=== PATIENT | female | born 1935 | race Caucasian/White ===

== ENCOUNTER 2016-08-08 11:30 | Inpatient (IN) | payer MEDICAID ==
[~2016-08-08] VITALS: Ht 147.3 cm; Wt 64.0 kg
[2016-08-08] MEDS ORDERED: SODIUM CHLORIDE 0.9% 1,000 ML IV ONE (11:50)
[2016-08-08] MEDS ORDERED: ACETAMINOPHEN 500 MG TABLET PO ONE (12:00)
[2016-08-08] MEDS ORDERED: ACETAMINOPHEN 325 MG TABLET PO ONE (12:00)
[2016-08-08] MEDS ORDERED: SODIUM CHLORIDE 0.9% 1,000ML IVBOLUS ONE ×4 (12:00→21:30)
[2016-08-08] MEDS ORDERED: ACETAMINOPHEN 500 MG TABLET ONE (12:05)
[2016-08-08 12:35] LABS: DIFF TOTAL CELLS COUNTED 100 CELL DIFF
[2016-08-08 12:39] LABS: ASPARTATE AMINO TRANSFERASE 382 U/L (15-37); BLOOD UREA NITROGEN 33 mg/dL (7-18)
[2016-08-08 12:39] LABS: VERIFY COUNTS? YES
[2016-08-08] MEDS ORDERED: CEFTRIAXONE PMX 1GM/50ML 50 ML ONE (12:59)
[2016-08-08] MEDS ORDERED: CEFTRIAXONE PMX 1GM/50ML 50 ML IV ONE (13:00)
[2016-08-08] MEDS ORDERED: NOREPINEPHRINE 4 MG in SODIUM CHLORIDE 0.9% 246 ML IV PRN ×2 (14:30→21:30)
[2016-08-08 14:59] LABS: IS PT STATUS REG ER OR PRE ER? YES
[2016-08-08] MEDS ORDERED: DEXTROSE 4 GM TAB.CHEW PO PRN (16:00)
[2016-08-08] MEDS ORDERED: GLUCAGON 1 MG IM PRN (16:00)
[2016-08-08] MEDS ORDERED: POLYETHYLENE GLYCOL 17 GM PACKET PO PRN (16:00)
[2016-08-08] MEDS ORDERED: BISACODYL 10 MG SUPP PR PRN (16:00)
[2016-08-08] MEDS ORDERED: DEXTROSE 50%, 50ML SYRINGE IVPush PRN (16:00)
[2016-08-08] MEDS ORDERED: DOCUSATE 100 MG CAPSULE PO PRN (16:00)
[2016-08-08] MEDS ORDERED: POTASSIUM CHLORIDE 10 MEQ in SODIUM CHLORIDE 0.9% 1,000 ML IV SCH (16:00)
[2016-08-08] MEDS: INSULIN ASPART 100 UNITS/ML, PEN SQ-INSULIN SCH ×2 (16:00→22:18)
[2016-08-08] MEDS ORDERED: ONDANSETRON 2MG/ML, 2ML IVPush PRN (16:00)
[2016-08-08] MEDS: METRONIDAZOLE PMX 500MG/100ML 100 ML IV SCH ×2 (16:47→23:34)
[2016-08-08] MEDS: HEPARIN 5,000 UNITS/ML, 1ML SQ SCH (16:48)
[2016-08-08 18:34] LABS: ABG COLLECTION SITE RIGHT BRACHIAL; COLLATERAL CIRCULATION TESTING NORMAL
[2016-08-08] MEDS: SODIUM CHLORIDE FLUSH 10ML SYR IVF SCH (22:04)
[2016-08-08] MEDS: POTASSIUM CHLORIDE 10 MEQ in SODIUM CHLORIDE 0.9% 1,000 ML IV SCH (22:04)
[2016-08-09] MEDS: HEPARIN 5,000 UNITS/ML, 1ML SQ SCH ×3 (02:17→17:32)
[2016-08-09] MEDS: POTASSIUM CHLORIDE 10 MEQ in SODIUM CHLORIDE 0.9% 1,000 ML IV SCH ×4 (04:32→23:47)
[2016-08-09 05:24] LABS: ASPARTATE AMINO TRANSFERASE 209 U/L (15-37); BLOOD UREA NITROGEN 21 mg/dL (7-18)
[2016-08-09 05:26] LABS: DIFF TOTAL CELLS COUNTED 100 CELL DIFF
[2016-08-09 05:27] LABS: VERIFY COUNTS? YES
[2016-08-09] MEDS: METRONIDAZOLE PMX 500MG/100ML 100 ML IV SCH ×4 (05:29→23:47)
[2016-08-09] MEDS: INSULIN ASPART 100 UNITS/ML, PEN SQ-INSULIN SCH ×4 (08:05→21:00)
[2016-08-09 09:42] LABS: HEPATITIS C VIRUS ANTIBODY Nonreactive (Nonreactive)
[2016-08-09] MEDS: SODIUM CHLORIDE FLUSH 10ML SYR IVF SCH ×2 (10:13→21:27)
[2016-08-09] MEDS ORDERED: MORPHINE SULFATE 4 MG/ML, 1ML ONE (12:49)
[2016-08-09] MEDS: morphine SULFATE 10 MG/ML, 1ML IVPush PRN ×4 (12:58→23:47)
[2016-08-09] MEDS ORDERED: CEFTRIAXONE 1,000 MG in SODIUM CHLORIDE 0.9% 50 ML IV SCH (13:00)
[2016-08-09] MEDS ORDERED: VANCOMYCIN PER PHARMACY MC PRN (18:00)
[2016-08-09] MEDS ORDERED: PHARMACOKINETIC MONITORING MC PRN (18:30)
[2016-08-09] MEDS ORDERED: PHARMACOKINETIC CONSULTATION MC ONE (18:30)
[2016-08-09] MEDS: NYSTATIN 500,000 UNITS/5 ML UDC PO SCH ×2 (18:39→21:27)
[2016-08-09] MEDS: VANCOMYCIN PMX 1GM/200ML 200 ML IV SCH (18:39)
[2016-08-09] MEDS: MEROPENEM 1 GM in SODIUM CHLORIDE 0.9% 100 ML IV SCH (21:26)
[2016-08-10] MEDS: HEPARIN 5,000 UNITS/ML, 1ML SQ SCH ×3 (02:21→17:27)
[2016-08-10] MEDS: morphine SULFATE 10 MG/ML, 1ML IVPush PRN (04:00)
[2016-08-10] MEDS: MEROPENEM 1 GM in SODIUM CHLORIDE 0.9% 100 ML IV SCH ×3 (04:00→21:24)
[2016-08-10 05:03] LABS: ASPARTATE AMINO TRANSFERASE 74 U/L (15-37); BLOOD UREA NITROGEN 12 mg/dL (7-18)
[2016-08-10] MEDS: METRONIDAZOLE PMX 500MG/100ML 100 ML IV SCH ×4 (05:47→23:38)
[2016-08-10] MEDS: NYSTATIN 500,000 UNITS/5 ML UDC PO SCH ×4 (05:47→21:24)
[2016-08-10 06:01] LABS: DIFF TOTAL CELLS COUNTED 100 CELL DIFF
[2016-08-10 06:03] LABS: VERIFY COUNTS? YES
[2016-08-10] MEDS: INSULIN ASPART 100 UNITS/ML, PEN SQ-INSULIN SCH ×4 (08:20→21:00)
[2016-08-10] MEDS: POTASSIUM CHLORIDE 10 MEQ in SODIUM CHLORIDE 0.9% 1,000 ML IV SCH ×3 (08:37→21:26)
[2016-08-10] MEDS: SODIUM CHLORIDE FLUSH 10ML SYR IVF SCH ×2 (08:38→21:24)
[2016-08-10] MEDS ORDERED: POTASSIUM CHLORIDE 10 MEQ in SODIUM CHLORIDE 0.9% 1,000 ML IV SCH (09:14)
[2016-08-10] MEDS ORDERED: POTASSIUM CHLORIDE 20 MEQ PACKET PO ONE (09:30)
[2016-08-10] MEDS ORDERED: MAGNESIUM SULFATE PMX 4GM/100M 100 ML IVPB ONE (09:30)
[2016-08-10] MEDS: VANCOMYCIN PMX 1GM/200ML 200 ML IV SCH (21:24)
[2016-08-11] MEDS: HEPARIN 5,000 UNITS/ML, 1ML SQ SCH ×3 (01:30→22:33)
[2016-08-11] MEDS: MEROPENEM 1 GM in SODIUM CHLORIDE 0.9% 100 ML IV SCH ×3 (03:53→22:33)
[2016-08-11 04:10] VITALS: BP 130/44
[2016-08-11 05:07] LABS: ASPARTATE AMINO TRANSFERASE 38 U/L (15-37); BLOOD UREA NITROGEN 6 mg/dL (7-18)
[2016-08-11] MEDS: METRONIDAZOLE PMX 500MG/100ML 100 ML IV SCH ×3 (05:19→23:17)
[2016-08-11] MEDS: INSULIN ASPART 100 UNITS/ML, PEN SQ-INSULIN SCH ×4 (05:23→21:00)
[2016-08-11] MEDS: NYSTATIN 500,000 UNITS/5 ML UDC PO SCH ×4 (05:23→22:33)
[2016-08-11 05:38] LABS: DIFF TOTAL CELLS COUNTED 100 CELL DIFF
[2016-08-11 05:40] LABS: VERIFY COUNTS? YES
[2016-08-11] MEDS: SODIUM CHLORIDE FLUSH 10ML SYR IVF SCH ×2 (08:43→22:34)
[2016-08-11] MEDS ORDERED: FENTANYL PF 250 MCG/5ML ONE (14:43)
[2016-08-11] MEDS ORDERED: BUPIVACAINE/PF 0.5% ONE (14:45)
[2016-08-11] MEDS ORDERED: SUCCINYLCHOLINE 20 MG/ML, 10ML ONE (15:21)
[2016-08-11] MEDS ORDERED: PROPOFOL 10 MG/ML, 20ML ONE (15:21)
[2016-08-11] MEDS ORDERED: ROCURONIUM 10 MG/ML ONE (15:21)
[2016-08-11] MEDS ORDERED: GLYCOPYRROLATE 0.2MG/1ML ONE (15:21)
[2016-08-11] MEDS ORDERED: ONDANSETRON 2MG/ML, 2ML ONE (15:21)
[2016-08-11] MEDS ORDERED: EPHEDRINE 50 MG/ML, 1ML ONE (15:21)
[2016-08-11] MEDS ORDERED: NEOSTIGMINE 1 MG/ML, 10ML ONE (15:21)
[2016-08-11] MEDS ORDERED: BUPIVACAINE/PF 0.5% INFIL ONE (15:45)
[2016-08-11] MEDS ORDERED: FENTANYL PF 100 MCG/2ML ONE (16:28)
[2016-08-11] MEDS ORDERED: OXYcodone 5 MG/5 ML ORAL.SOL UDC ONE (16:28)
[2016-08-11] MEDS ORDERED: OXYcodone 5 MG/5 ML ORAL.SOL UDC PO PRN (17:00)
[2016-08-11] MEDS ORDERED: PROMETHAZINE 25 MG/ML, 1ML IV PRN (17:00)
[2016-08-11] MEDS ORDERED: FENTANYL PF 100 MCG/2ML IV PRN (17:00)
[2016-08-11] MEDS ORDERED: ONDANSETRON 2MG/ML, 2ML IVPush PRN (17:00)
[2016-08-11] MEDS: POTASSIUM CHLORIDE 10 MEQ in SODIUM CHLORIDE 0.9% 1,000 ML IV SCH (17:43)
[2016-08-12] MEDS: VANCOMYCIN PMX 1GM/200ML 200 ML IV SCH (00:16)
[2016-08-12 00:42] VITALS: BP 100/50
[2016-08-12] MEDS: NYSTATIN 500,000 UNITS/5 ML UDC PO SCH ×4 (05:13→19:55)
[2016-08-12] MEDS: morphine SULFATE 10 MG/ML, 1ML IVPush PRN (05:13)
[2016-08-12] MEDS: POTASSIUM CHLORIDE 10 MEQ in SODIUM CHLORIDE 0.9% 1,000 ML IV SCH ×3 (05:13→17:15)
[2016-08-12] MEDS: METRONIDAZOLE PMX 500MG/100ML 100 ML IV SCH ×4 (05:13→23:29)
[2016-08-12 05:50] LABS: ASPARTATE AMINO TRANSFERASE 48 U/L (15-37); BLOOD UREA NITROGEN 5 mg/dL (7-18)
[2016-08-12] MEDS: MEROPENEM 1 GM in SODIUM CHLORIDE 0.9% 100 ML IV SCH ×3 (06:36→22:28)
[2016-08-12] MEDS: HEPARIN 5,000 UNITS/ML, 1ML SQ SCH ×3 (06:36→22:29)
[2016-08-12 06:44] VITALS: BP 116/55
[2016-08-12] MEDS: INSULIN ASPART 100 UNITS/ML, PEN SQ-INSULIN SCH ×4 (07:00→19:55)
[2016-08-12] MEDS: SODIUM CHLORIDE FLUSH 10ML SYR IVF SCH ×2 (07:45→19:55)
[2016-08-12] MEDS ORDERED: [UNRECOGNIZED DRUG - REMARK] XX PRN (10:00)
[2016-08-12 12:53] VITALS: BP 98/63
[2016-08-12] MEDS ORDERED: FUROSEMIDE 40 MG/4 ML IV ONE ×2 (17:00→17:30)
[2016-08-12] MEDS ORDERED: FUROSEMIDE 20 MG/2 ML ONE (17:07)
[2016-08-12 17:19] VITALS: BP 117/47
[2016-08-12] MEDS: ACETAMINOPHEN 325 MG TABLET PO PRN (17:32)
[2016-08-12] MEDS: POTASSIUM CHLORIDE 20 MEQ TAB.ER.PRT PO SCH ×4 (17:32→23:46)
[2016-08-12] MEDS ORDERED: FUROSEMIDE 20 MG/2 ML IV ONE (18:00)
[2016-08-12 21:03] VITALS: BP 102/66
[2016-08-13 01:04] VITALS: BP 104/71
[2016-08-13] MEDS: POTASSIUM CHLORIDE 10 MEQ in SODIUM CHLORIDE 0.9% 1,000 ML IV SCH ×2 (04:33→16:00)
[2016-08-13] MEDS: METRONIDAZOLE PMX 500MG/100ML 100 ML IV SCH ×3 (04:33→18:21)
[2016-08-13 05:20] LABS: BLOOD UREA NITROGEN 4 mg/dL (7-18)
[2016-08-13 05:29] LABS: ASPARTATE AMINO TRANSFERASE 111 U/L (15-37)
[2016-08-13] MEDS: HEPARIN 5,000 UNITS/ML, 1ML SQ SCH ×3 (06:00→21:42)
[2016-08-13] MEDS: MEROPENEM 1 GM in SODIUM CHLORIDE 0.9% 100 ML IV SCH ×3 (06:00→21:42)
[2016-08-13] MEDS: NYSTATIN 500,000 UNITS/5 ML UDC PO SCH ×4 (06:00→20:08)
[2016-08-13] MEDS ORDERED: POTASSIUM PHOSPHATE 44 MEQ in SODIUM CHLORIDE 0.9% 500 ML IV ONE (06:00)
[2016-08-13 08:30] VITALS: BP 101/56
[2016-08-13] MEDS: ACETAMINOPHEN 325 MG TABLET PO PRN (08:46)
[2016-08-13] MEDS: INSULIN ASPART 100 UNITS/ML, PEN SQ-INSULIN SCH ×4 (08:47→20:08)
[2016-08-13] MEDS: SODIUM CHLORIDE FLUSH 10ML SYR IVF SCH ×2 (08:47→21:43)
[2016-08-13] MEDS ORDERED: VANCOMYCIN PMX 1GM/200ML 200 ML IV SCH (11:00)
[2016-08-13 14:30] VITALS: BP 102/59
[2016-08-13] MEDS ORDERED: POTASSIUM CHLORIDE 10 MEQ TABLET.ER PO SCH (18:00)
[2016-08-13] MEDS ORDERED: MAGNESIUM SULFATE PMX 4GM/100M 100 ML IV ONE (18:00)
[2016-08-13] MEDS ORDERED: FUROSEMIDE 40 MG/4 ML IV ONE ×2 (18:00)
[2016-08-13] MEDS ORDERED: POTASSIUM CHLORIDE 20 MEQ TAB.ER.PRT PO ONE (18:00)
[2016-08-13 18:52] VITALS: BP 112/70
[2016-08-14] MEDS: METRONIDAZOLE PMX 500MG/100ML 100 ML IV SCH ×4 (00:35→18:22)
[2016-08-14 01:00] VITALS: BP 125/69
[2016-08-14 05:09] LABS: ASPARTATE AMINO TRANSFERASE 53 U/L (15-37); BLOOD UREA NITROGEN 2 mg/dL (7-18)
[2016-08-14] MEDS: HEPARIN 5,000 UNITS/ML, 1ML SQ SCH ×3 (05:56→22:58)
[2016-08-14] MEDS: NYSTATIN 500,000 UNITS/5 ML UDC PO SCH ×4 (05:56→20:14)
[2016-08-14] MEDS ORDERED: POTASSIUM PHOSPHATE 44 MEQ in SODIUM CHLORIDE 0.9% 500 ML IV ONE ×2 (06:00→15:00)
[2016-08-14 06:31] VITALS: BP 98/59
[2016-08-14] MEDS: INSULIN ASPART 100 UNITS/ML, PEN SQ-INSULIN SCH ×4 (07:00→20:15)
[2016-08-14] MEDS ORDERED: FUROSEMIDE 40 MG/4 ML IV ONE (08:00)
[2016-08-14] MEDS: SODIUM CHLORIDE FLUSH 10ML SYR IVF SCH ×2 (08:50→20:14)
[2016-08-14] MEDS: MEROPENEM 1 GM in SODIUM CHLORIDE 0.9% 100 ML IV SCH ×2 (08:50→16:23)
[2016-08-14 13:15] VITALS: BP 157/73
[2016-08-14] MEDS: POTASSIUM CHLORIDE 20 MEQ TAB.ER.PRT PO SCH ×2 (16:40→18:24)
[2016-08-14] MEDS ORDERED: VANCOMYCIN 1,200 MG in SODIUM CHLORIDE 0.9% 250 ML IV SCH (18:00)
[2016-08-14] MEDS: VANCOMYCIN 1,200 MG in SODIUM CHLORIDE 0.9% 250 ML IV SCH (18:20)
[2016-08-14 19:07] VITALS: BP 113/63
[2016-08-15] MEDS: MEROPENEM 1 GM in SODIUM CHLORIDE 0.9% 100 ML IV SCH ×4 (00:21→23:43)
[2016-08-15 01:21] VITALS: BP 107/66
[2016-08-15] MEDS: METRONIDAZOLE PMX 500MG/100ML 100 ML IV SCH ×4 (01:34→20:57)
[2016-08-15 04:53] LABS: BLOOD UREA NITROGEN 3 mg/dL (7-18)
[2016-08-15 04:58] LABS: ASPARTATE AMINO TRANSFERASE 27 U/L (15-37)
[2016-08-15] MEDS: NYSTATIN 500,000 UNITS/5 ML UDC PO SCH ×4 (06:17→20:08)
[2016-08-15] MEDS: HEPARIN 5,000 UNITS/ML, 1ML SQ SCH ×3 (06:18→22:42)
[2016-08-15 06:37] VITALS: BP 111/69
[2016-08-15] MEDS: INSULIN ASPART 100 UNITS/ML, PEN SQ-INSULIN SCH ×4 (07:00→20:08)
[2016-08-15] MEDS: SODIUM CHLORIDE FLUSH 10ML SYR IVF SCH ×2 (07:41→20:08)
[2016-08-15 12:30] VITALS: BP 123/58
[2016-08-15] MEDS ORDERED: FUROSEMIDE 20 MG/2 ML IV ONE (16:30)
[2016-08-15 17:31] VITALS: BP 105/69
[2016-08-15 19:23] VITALS: BP 99/66
[2016-08-15] MEDS: VANCOMYCIN 1,200 MG in SODIUM CHLORIDE 0.9% 250 ML IV SCH (19:25)
[2016-08-16 01:34] VITALS: BP 106/66
[2016-08-16] MEDS: METRONIDAZOLE PMX 500MG/100ML 100 ML IV SCH ×4 (02:15→21:16)
[2016-08-16] MEDS: NYSTATIN 500,000 UNITS/5 ML UDC PO SCH ×4 (06:24→21:10)
[2016-08-16] MEDS: HEPARIN 5,000 UNITS/ML, 1ML SQ SCH ×3 (06:24→22:50)
[2016-08-16 06:32] LABS: ASPARTATE AMINO TRANSFERASE 34 U/L (15-37); BLOOD UREA NITROGEN 4 mg/dL (7-18)
[2016-08-16 06:35] VITALS: BP 108/52
[2016-08-16] MEDS: INSULIN ASPART 100 UNITS/ML, PEN SQ-INSULIN SCH ×4 (07:53→20:13)
[2016-08-16] MEDS ORDERED: FUROSEMIDE 20 MG/2 ML IV SCH (09:00)
[2016-08-16] MEDS: MEROPENEM 1 GM in SODIUM CHLORIDE 0.9% 100 ML IV SCH ×3 (09:16→23:44)
[2016-08-16] MEDS: SODIUM CHLORIDE FLUSH 10ML SYR IVF SCH ×2 (09:16→21:11)
[2016-08-16 13:37] VITALS: BP 106/65
[2016-08-16 19:05] VITALS: BP 120/69
[2016-08-16] MEDS ORDERED: FUROSEMIDE 40 MG/4 ML IV ONE (19:30)
[2016-08-16] MEDS ORDERED: POTASSIUM CHLORIDE 20 MEQ TAB.ER.PRT PO ONE (19:30)
[2016-08-16] MEDS: VANCOMYCIN 1,200 MG in SODIUM CHLORIDE 0.9% 250 ML IV SCH (19:35)
[2016-08-17 01:17] VITALS: BP 103/65
[2016-08-17] MEDS: METRONIDAZOLE PMX 500MG/100ML 100 ML IV SCH ×4 (01:50→20:33)
[2016-08-17] MEDS: NYSTATIN 500,000 UNITS/5 ML UDC PO SCH ×4 (06:12→20:34)
[2016-08-17] MEDS: HEPARIN 5,000 UNITS/ML, 1ML SQ SCH ×3 (06:12→22:14)
[2016-08-17 06:41] VITALS: BP 96/61
[2016-08-17] MEDS: INSULIN ASPART 100 UNITS/ML, PEN SQ-INSULIN SCH ×4 (07:17→22:07)
[2016-08-17] MEDS: MEROPENEM 1 GM in SODIUM CHLORIDE 0.9% 100 ML IV SCH ×3 (07:24→23:26)
[2016-08-17] MEDS: SODIUM CHLORIDE FLUSH 10ML SYR IVF SCH ×2 (07:24→22:14)
[2016-08-17 13:37] VITALS: BP 108/69
[2016-08-17] MEDS ORDERED: POTASSIUM CHLORIDE 20 MEQ TAB.ER.PRT PO ONE (17:30)
[2016-08-17] MEDS ORDERED: FUROSEMIDE 40 MG/4 ML IV ONE (17:30)
[2016-08-17] MEDS: VANCOMYCIN 1,200 MG in SODIUM CHLORIDE 0.9% 250 ML IV SCH (17:58)
[2016-08-17 18:35] VITALS: BP 99/61
[2016-08-18 01:14] VITALS: BP 94/62
[2016-08-18] MEDS: METRONIDAZOLE PMX 500MG/100ML 100 ML IV SCH ×4 (02:22→20:44)
[2016-08-18] MEDS: HEPARIN 5,000 UNITS/ML, 1ML SQ SCH ×3 (06:28→23:29)
[2016-08-18] MEDS: NYSTATIN 500,000 UNITS/5 ML UDC PO SCH ×4 (06:28→20:48)
[2016-08-18] MEDS: INSULIN ASPART 100 UNITS/ML, PEN SQ-INSULIN SCH ×4 (07:00→20:57)
[2016-08-18] MEDS: MEROPENEM 1 GM in SODIUM CHLORIDE 0.9% 100 ML IV SCH ×3 (07:34→23:30)
[2016-08-18] MEDS: SODIUM CHLORIDE FLUSH 10ML SYR IVF SCH ×2 (07:34→20:48)
[2016-08-18 08:05] VITALS: BP 103/65
[2016-08-18] MEDS: VANCOMYCIN 1,200 MG in SODIUM CHLORIDE 0.9% 250 ML IV SCH (11:18)
[2016-08-18 14:28] VITALS: BP 117/68
[2016-08-18 18:34] VITALS: BP 139/66
[2016-08-19 00:12] VITALS: BP 98/62
[2016-08-19] MEDS: METRONIDAZOLE PMX 500MG/100ML 100 ML IV SCH ×4 (02:06→20:37)
[2016-08-19] MEDS: NYSTATIN 500,000 UNITS/5 ML UDC PO SCH ×4 (05:06→21:00)
[2016-08-19] MEDS: VANCOMYCIN 1,200 MG in SODIUM CHLORIDE 0.9% 250 ML IV SCH (05:06)
[2016-08-19 05:32] LABS: ASPARTATE AMINO TRANSFERASE 28 U/L (15-37); BLOOD UREA NITROGEN 3 mg/dL (7-18)
[2016-08-19] MEDS: HEPARIN 5,000 UNITS/ML, 1ML SQ SCH ×3 (06:27→23:00)
[2016-08-19 06:58] VITALS: BP 121/74
[2016-08-19] MEDS: INSULIN ASPART 100 UNITS/ML, PEN SQ-INSULIN SCH ×4 (07:00→21:00)
[2016-08-19] MEDS: MEROPENEM 1 GM in SODIUM CHLORIDE 0.9% 100 ML IV SCH ×3 (07:20→23:58)
[2016-08-19] MEDS ORDERED: POTASSIUM PHOSPHATE 44 MEQ in SODIUM CHLORIDE 0.9% 500 ML IV ONE ×2 (07:30→13:30)
[2016-08-19] MEDS: SODIUM CHLORIDE FLUSH 10ML SYR IVF SCH ×2 (08:14→21:00)
[2016-08-19] MEDS ORDERED: MAGNESIUM SULFATE PMX 2GM/50ML 50 ML IV ONE (14:30)
[2016-08-19 14:39] VITALS: BP 128/81
[2016-08-19 18:37] VITALS: BP 127/78
[2016-08-19] MEDS ORDERED: DEXTROSE 4 GM TAB.CHEW PO PRN (19:30)
[2016-08-19] MEDS ORDERED: GLUCAGON 1 MG IM PRN (19:30)
[2016-08-19] MEDS ORDERED: DEXTROSE 50%, 50ML SYRINGE IVPush PRN (19:30)
[2016-08-19] MEDS ORDERED: DOCUSATE 100 MG CAPSULE PO PRN (19:30)
[2016-08-19] MEDS ORDERED: BISACODYL 10 MG SUPP PR PRN (19:30)
[2016-08-20 00:19] VITALS: BP 122/65
[2016-08-20] MEDS: VANCOMYCIN 1,200 MG in SODIUM CHLORIDE 0.9% 250 ML IV SCH ×2 (00:35→17:14)
[2016-08-20] MEDS: METRONIDAZOLE PMX 500MG/100ML 100 ML IV SCH ×4 (02:21→20:05)
[2016-08-20 05:19] LABS: BLOOD UREA NITROGEN 3 mg/dL (7-18)
[2016-08-20] MEDS: HEPARIN 5,000 UNITS/ML, 1ML SQ SCH ×3 (06:20→23:13)
[2016-08-20] MEDS: NYSTATIN 500,000 UNITS/5 ML UDC PO SCH ×4 (06:20→20:05)
[2016-08-20] MEDS: INSULIN ASPART 100 UNITS/ML, PEN SQ-INSULIN SCH ×4 (07:00→20:17)
[2016-08-20] MEDS: MEROPENEM 1 GM in SODIUM CHLORIDE 0.9% 100 ML IV SCH ×3 (07:43→23:23)
[2016-08-20 08:00] VITALS: BP 100/65
[2016-08-20] MEDS: SODIUM CHLORIDE FLUSH 10ML SYR IVF SCH ×2 (08:20→20:06)
[2016-08-20 15:44] VITALS: BP 123/75
[2016-08-20 19:36] VITALS: BP 112/72
[2016-08-20] MEDS ORDERED: POTASSIUM PHOSPHATE 44 MEQ in SODIUM CHLORIDE 0.9% 500 ML IV ONE (20:00)
[2016-08-21 01:34] VITALS: BP 96/60
[2016-08-21] MEDS: METRONIDAZOLE PMX 500MG/100ML 100 ML IV SCH ×4 (02:27→20:36)
[2016-08-21] MEDS: HEPARIN 5,000 UNITS/ML, 1ML SQ SCH ×3 (05:45→22:51)
[2016-08-21] MEDS: NYSTATIN 500,000 UNITS/5 ML UDC PO SCH ×4 (05:45→22:51)
[2016-08-21 05:49] LABS: BLOOD UREA NITROGEN 3 mg/dL (7-18)
[2016-08-21] MEDS: INSULIN ASPART 100 UNITS/ML, PEN SQ-INSULIN SCH ×4 (07:00→21:00)
[2016-08-21] MEDS: SODIUM CHLORIDE FLUSH 10ML SYR IVF SCH ×2 (07:39→22:51)
[2016-08-21] MEDS: MEROPENEM 1 GM in SODIUM CHLORIDE 0.9% 100 ML IV SCH ×2 (07:39→15:44)
[2016-08-21 08:00] VITALS: BP 92/51
[2016-08-21] MEDS: VANCOMYCIN 1,200 MG in SODIUM CHLORIDE 0.9% 250 ML IV SCH (11:24)
[2016-08-21 12:00] VITALS: BP 109/71
[2016-08-21] MEDS: ACETAMINOPHEN 325 MG TABLET PO PRN ×2 (15:05→22:51)
[2016-08-21] MEDS ORDERED: POTASSIUM PHOSPHATE 44 MEQ in SODIUM CHLORIDE 0.9% 500 ML IV ONE (19:00)
[2016-08-21 19:30] VITALS: BP 105/68
[2016-08-21] MEDS: POTASSIUM CHLORIDE 20 MEQ TAB.ER.PRT PO SCH ×2 (20:37→22:50)
[2016-08-22] MEDS: MEROPENEM 1 GM in SODIUM CHLORIDE 0.9% 100 ML IV SCH ×3 (00:17→15:37)
[2016-08-22 01:18] VITALS: BP 97/59
[2016-08-22] MEDS: METRONIDAZOLE PMX 500MG/100ML 100 ML IV SCH ×4 (02:54→20:55)
[2016-08-22 05:06] LABS: BLOOD UREA NITROGEN 2 mg/dL (7-18)
[2016-08-22] MEDS: VANCOMYCIN 1,200 MG in SODIUM CHLORIDE 0.9% 250 ML IV SCH ×2 (05:41→23:44)
[2016-08-22] MEDS: NYSTATIN 500,000 UNITS/5 ML UDC PO SCH (05:41)
[2016-08-22 06:53] VITALS: BP 97/61
[2016-08-22] MEDS: INSULIN ASPART 100 UNITS/ML, PEN SQ-INSULIN SCH ×4 (07:00→21:00)
[2016-08-22] MEDS: HEPARIN 5,000 UNITS/ML, 1ML SQ SCH ×3 (07:55→23:43)
[2016-08-22] MEDS: SODIUM CHLORIDE FLUSH 10ML SYR IVF SCH ×2 (08:30→20:56)
[2016-08-22] MEDS: ACETAMINOPHEN 325 MG TABLET PO PRN (10:56)
[2016-08-22 12:56] VITALS: BP 100/65
[2016-08-22 19:19] VITALS: BP 100/61
[2016-08-23] MEDS: MEROPENEM 1 GM in SODIUM CHLORIDE 0.9% 100 ML IV SCH ×3 (01:26→16:10)
[2016-08-23 02:14] VITALS: BP 116/73
[2016-08-23] MEDS: METRONIDAZOLE PMX 500MG/100ML 100 ML IV SCH ×4 (02:33→20:04)
[2016-08-23 06:41] VITALS: BP 96/67
[2016-08-23] MEDS: INSULIN ASPART 100 UNITS/ML, PEN SQ-INSULIN SCH ×4 (07:00→21:00)
[2016-08-23] MEDS: HEPARIN 5,000 UNITS/ML, 1ML SQ SCH ×2 (07:43→16:10)
[2016-08-23] MEDS: SODIUM CHLORIDE FLUSH 10ML SYR IVF SCH ×2 (07:44→20:03)
[2016-08-23] MEDS ORDERED: POTASSIUM PHOSPHATE 44 MEQ in SODIUM CHLORIDE 0.9% 500 ML IV ONE (12:00)
[2016-08-23 13:18] VITALS: BP 95/61
[2016-08-23] MEDS: VANCOMYCIN 1,200 MG in SODIUM CHLORIDE 0.9% 250 ML IV SCH (17:11)
[2016-08-23 19:30] VITALS: BP 109/71
[2016-08-24] MEDS: MEROPENEM 1 GM in SODIUM CHLORIDE 0.9% 100 ML IV SCH ×5 (00:16→23:32)
[2016-08-24] MEDS: HEPARIN 5,000 UNITS/ML, 1ML SQ SCH ×4 (00:16→23:32)
[2016-08-24 00:34] VITALS: BP 115/72
[2016-08-24] MEDS: METRONIDAZOLE PMX 500MG/100ML 100 ML IV SCH ×4 (02:04→20:25)
[2016-08-24 06:03] LABS: BLOOD UREA NITROGEN 4 mg/dL (7-18)
[2016-08-24] MEDS: INSULIN ASPART 100 UNITS/ML, PEN SQ-INSULIN SCH ×4 (07:00→21:00)
[2016-08-24 07:43] VITALS: BP_SYST 93; BP_SYST 97; BP_DIAS 59; BP_DIAS 61
[2016-08-24] MEDS: ACETAMINOPHEN 325 MG TABLET PO PRN (08:07)
[2016-08-24] MEDS: VANCOMYCIN 1,200 MG in SODIUM CHLORIDE 0.9% 250 ML IV SCH (11:09)
[2016-08-24] MEDS: SODIUM CHLORIDE FLUSH 10ML SYR IVF SCH ×2 (11:16→20:25)
[2016-08-24 14:32] VITALS: BP 94/60
[2016-08-24 19:10] VITALS: BP 135/79
[2016-08-25 01:44] VITALS: BP 133/85
[2016-08-25] MEDS: METRONIDAZOLE PMX 500MG/100ML 100 ML IV SCH ×4 (02:10→19:53)
[2016-08-25] MEDS: VANCOMYCIN 1,200 MG in SODIUM CHLORIDE 0.9% 250 ML IV SCH ×2 (05:11→23:00)
[2016-08-25] MEDS: INSULIN ASPART 100 UNITS/ML, PEN SQ-INSULIN SCH ×4 (07:00→21:00)
[2016-08-25 07:05] VITALS: BP 105/70
[2016-08-25] MEDS: MEROPENEM 1 GM in SODIUM CHLORIDE 0.9% 100 ML IV SCH ×3 (07:25→23:51)
[2016-08-25] MEDS: HEPARIN 5,000 UNITS/ML, 1ML SQ SCH ×3 (07:27→23:16)
[2016-08-25] MEDS: SODIUM CHLORIDE FLUSH 10ML SYR IVF SCH ×2 (09:50→21:00)
[2016-08-25 12:36] VITALS: BP 104/68
[2016-08-25] MEDS ORDERED: DEXTROSE 50%, 50ML SYRINGE IVPush PRN (14:00)
[2016-08-25] MEDS ORDERED: BISACODYL 10 MG SUPP PR PRN (14:00)
[2016-08-25] MEDS ORDERED: DEXTROSE 4 GM TAB.CHEW PO PRN (14:00)
[2016-08-25] MEDS ORDERED: GLUCAGON 1 MG IM PRN (14:00)
[2016-08-25] MEDS ORDERED: POLYETHYLENE GLYCOL 17 GM PACKET PO PRN (14:00)
[2016-08-25 18:49] VITALS: BP 92/61
[2016-08-26 01:43] VITALS: BP 110/72
[2016-08-26] MEDS: METRONIDAZOLE PMX 500MG/100ML 100 ML IV SCH ×4 (01:43→21:19)
[2016-08-26 06:48] VITALS: BP 100/66
[2016-08-26] MEDS: INSULIN ASPART 100 UNITS/ML, PEN SQ-INSULIN SCH ×4 (07:00→21:00)
[2016-08-26] MEDS: HEPARIN 5,000 UNITS/ML, 1ML SQ SCH ×3 (08:09→23:33)
[2016-08-26] MEDS: MEROPENEM 1 GM in SODIUM CHLORIDE 0.9% 100 ML IV SCH ×3 (08:09→23:32)
[2016-08-26] MEDS: SODIUM CHLORIDE FLUSH 10ML SYR IVF SCH ×2 (09:18→21:20)
[2016-08-26 12:42] VITALS: BP 90/58
[2016-08-26] MEDS ORDERED: POTASSIUM PHOSPHATE 44 MEQ in SODIUM CHLORIDE 0.9% 500 ML IV ONE (17:30)
[2016-08-26] MEDS: VANCOMYCIN 1,200 MG in SODIUM CHLORIDE 0.9% 250 ML IV SCH (18:40)
[2016-08-26 20:02] VITALS: BP 111/61
[2016-08-27 00:38] VITALS: BP 114/67
[2016-08-27] MEDS: METRONIDAZOLE PMX 500MG/100ML 100 ML IV SCH ×4 (02:12→20:49)
[2016-08-27 06:58] VITALS: BP 108/67
[2016-08-27] MEDS: MEROPENEM 1 GM in SODIUM CHLORIDE 0.9% 100 ML IV SCH (08:06)
[2016-08-27] MEDS: INSULIN ASPART 100 UNITS/ML, PEN SQ-INSULIN SCH ×4 (08:06→20:49)
[2016-08-27] MEDS: POTASSIUM PHOSPHATE 44 MEQ in SODIUM CHLORIDE 0.9% 500 ML IV SCH ×2 (08:47→17:35)
[2016-08-27] MEDS: HEPARIN 5,000 UNITS/ML, 1ML SQ SCH ×3 (08:47→23:00)
[2016-08-27] MEDS: SODIUM CHLORIDE FLUSH 10ML SYR IVF SCH ×2 (09:00→20:49)
[2016-08-27 12:40] VITALS: BP 115/75
[2016-08-27 20:00] VITALS: BP 113/72
[2016-08-28] MEDS: METRONIDAZOLE PMX 500MG/100ML 100 ML IV SCH ×4 (01:10→21:13)
[2016-08-28 02:00] VITALS: BP 115/75
[2016-08-28] MEDS: VANCOMYCIN 1,200 MG in SODIUM CHLORIDE 0.9% 250 ML IV SCH (05:22)
[2016-08-28] MEDS: INSULIN ASPART 100 UNITS/ML, PEN SQ-INSULIN SCH ×4 (07:00→21:00)
[2016-08-28 07:03] VITALS: BP 112/64
[2016-08-28] MEDS: HEPARIN 5,000 UNITS/ML, 1ML SQ SCH ×2 (08:14→17:26)
[2016-08-28] MEDS: SODIUM CHLORIDE FLUSH 10ML SYR IVF SCH ×2 (11:35→21:13)
[2016-08-28 13:03] VITALS: BP 120/75
[2016-08-28 20:30] VITALS: BP 123/77
[2016-08-29] MEDS: HEPARIN 5,000 UNITS/ML, 1ML SQ SCH ×3 (03:11→18:20)
[2016-08-29] MEDS: METRONIDAZOLE PMX 500MG/100ML 100 ML IV SCH ×3 (03:11→15:56)
[2016-08-29 03:30] VITALS: BP 119/73
[2016-08-29] MEDS: INSULIN ASPART 100 UNITS/ML, PEN SQ-INSULIN SCH ×4 (07:00→20:45)
[2016-08-29 07:16] VITALS: BP 108/63
[2016-08-29] MEDS ORDERED: POTASSIUM PHOSPHATE 44 MEQ in SODIUM CHLORIDE 0.9% 500 ML IV ONE (09:30)
[2016-08-29] MEDS ORDERED: MAGNESIUM SULFATE PMX 2GM/50ML 50 ML IV ONE (09:30)
[2016-08-29] MEDS: SODIUM CHLORIDE FLUSH 10ML SYR IVF SCH ×2 (10:17→20:42)
[2016-08-29 12:42] VITALS: BP 114/64
[2016-08-29] MEDS: ACETAMINOPHEN 325 MG TABLET PO PRN (13:50)
[2016-08-29 20:02] VITALS: BP 92/57
[2016-08-29] MEDS: VANCOMYCIN 1,200 MG in SODIUM CHLORIDE 0.9% 250 ML IV SCH (20:24)
[2016-08-30] MEDS: METRONIDAZOLE PMX 500MG/100ML 100 ML IV SCH ×3 (00:42→12:13)
[2016-08-30] MEDS: HEPARIN 5,000 UNITS/ML, 1ML SQ SCH ×2 (01:44→09:29)
[2016-08-30 02:58] VITALS: BP 128/78
[2016-08-30 05:19] LABS: BLOOD UREA NITROGEN 3 mg/dL (7-18)
[2016-08-30 06:53] VITALS: BP 114/64
[2016-08-30] MEDS: INSULIN ASPART 100 UNITS/ML, PEN SQ-INSULIN SCH ×2 (07:00→11:00)
[2016-08-30] MEDS ORDERED: POLY17PO5 PO (08:15)
[2016-08-30] MEDS ORDERED: TRAM50TA2 PO (08:15)
[2016-08-30] MEDS: SODIUM CHLORIDE FLUSH 10ML SYR IVF SCH (09:28)
== END 2016-08-30 15:36 | disposition home or self-care (01) | DRG 853 ==
LOC: ED 13:58 → 4WST 15:00 → CCU 18:06 → 3NE 08-11 10:30
PROVIDERS: ADMIT Internal Medicine; ATTEND Internal Medicine
PROC: 0T9B70Z Drainage of Bladder with Drainage Device, Via Natural or Artificial Opening (ICD-10-PCS; 2016-08-08)
PROC: 0FT44ZZ Resection of Gallbladder, Percutaneous Endoscopic Approach (ICD-10-PCS; principal; 2016-08-11 14:45)
DX: A40.8 Other streptococcal sepsis (principal); R65.21 Severe sepsis with septic shock; E43 Unspecified severe protein-calorie malnutrition; K85.90 Acute pancreatitis without necrosis or infection, unspecified; N17.0 Acute kidney failure with tubular necrosis; K80.01 Calculus of gallbladder with acute cholecystitis with obstruction; E87.1 Hypo-osmolality and hyponatremia; B17.9 Acute viral hepatitis, unspecified; K83.0 Cholangitis; R65.20 Severe sepsis without septic shock; K72.90 Hepatic failure, unspecified without coma; E87.6 Hypokalemia; E11.9 Type 2 diabetes mellitus without complications; G89.29 Other chronic pain; E86.0 Dehydration; M51.36 Other intervertebral disc degeneration, lumbar region; E83.42 Hypomagnesemia; E83.39 Other disorders of phosphorus metabolism; M17.0 Bilateral primary osteoarthritis of knee; Z96.641 Presence of right artificial hip joint; Z68.29 Body mass index [BMI] 29.0-29.9, adult
CPT/HCPCS: 36415; 36600; 71010; 74176; 74181; 76700; 80048; 80053; 80074; 80202; 80307; 81001; 82803; 82962; 83036; 83605; 83690; 83735; 83880; 84100; 84145; 84484; 85025; 87040; 87077; 87081; 87086; 87181; 87186; 87324; 88304; 89055; 93005; 99285; J0696; J1644; J1815; J1940; J2185; J2405; J2704; J2710; J3010; J3370; J3480; J3490; J0330; J2270; J3475; J7030; J7040; J7050

== ENCOUNTER 2020-04-06 16:49 | Inpatient (IN) | payer MEDICAID, OTHER ==
[~2020-04-06] VITALS: Ht 147.3 cm; Wt 54.8 kg
[~2020-04-06 16:49] MED LIST: POLY17PO5 PO; TRAM50TA2 PO
--- NOTE | 2020-04-06 17:49 | NUR ---
PT COMES IN TODAY FROM OFFICE SENT IN FOR MULTIPLE BILATERAL LOWER EXTREMITY WOUNDS, ERYTHEMA, AND EDEMA. PT STATES SHE USES A WALKER AND HAS BEEN "RUNNING INTO THINGS." MONITORS CONNECTED.
--- NOTE | 2020-04-06 18:02 | NUR ---
MD AT BEDSIDE FOR ASSESSMENT AND TO DISCUSS PLAN OF CARE
--- NOTE | 2020-04-06 18:28 | NUR ---
PT RESTING ON GURNEY. IV ACCESS OBTAINED. BLOOD CULTURES AND LABS COLLECTED. PT DENIES PAIN OR ADDITIONAL NEEDS AT THIS TIME. CALL LIGHT W/IN REACH. FAMILY AT BEDSIDE
[2020-04-06] MEDS ORDERED: CHOL10003 PO (18:34)
[2020-04-06] MEDS ORDERED: ATOR20TA86 PO (18:34)
[2020-04-06] MEDS ORDERED: SITA100T PO (18:34)
[2020-04-06] MEDS ORDERED: GLIP5TAB10 PO (18:34)
[2020-04-06] MEDS ORDERED: METF750T PO (18:34)
[2020-04-06 18:36] LABS: BASOPHILS % (AUTO) 1 % (0-1); EOSINOPHILS % (AUTO) 1 % (1-7); LYMPHOCYTES % (AUTO) 30 % (22-44); MEAN CORPUSCULAR HEMOGLOBIN 29.9 pg (27.0-34.8); MEAN CORPUSCULAR HGB CONC 33.1 g/dL (32.4-35.8); MEAN PLATELET VOLUME 7.2 fL (7.4-10.4); MONOCYTES % (AUTO) 7 % (2-9); NEUTROPHILS % (AUTO) 62 % (42-75); PLATELET COUNT 425 x10^3/uL (130-400); RED BLOOD COUNT 5.31 x10^6/uL (3.82-5.3); RED CELL DISTRIBUTION WIDTH 14.5 % (9.6-15.2)
[2020-04-06 18:38] LABS: MD NO
[2020-04-06 18:46] LABS: ALBUMIN 3.6 g/dL (3.4-5.0); ANION GAP 8 mmol/L (5-15); CALCIUM 9.5 mg/dL (8.5-10.1); CHLORIDE 107 mmol/L (98-107); CREATININE 0.73 mg/dL (0.55-1.02)
[2020-04-06] MEDS ORDERED: DIPH,PERTUSS(ACELL),TET VAC/PF 0.5 ML IM-VACC ONE ×2 (19:00→19:54)
[2020-04-06] MEDS ORDERED: CEFTRIAXONE PMX 1GM/50ML 50 ML IV ONE (19:00)
[2020-04-06] MEDS ORDERED: VANCOMYCIN PER PHARMACY MC PRN ×2 (19:00→20:00)
[2020-04-06] MEDS ORDERED: NEOSPORIN OINT. PKT 1 PACKET ONE ×2 (19:34→19:50)
[2020-04-06] MEDS ORDERED: CEFTRIAXONE PMX 1GM/50ML 50 ML ONE ×3 (19:52→19:55)
[2020-04-06] MEDS ORDERED: BISACODYL 10 MG SUPP PR PRN (20:00)
[2020-04-06] MEDS ORDERED: ONDANSETRON ODT 4 MG PO PRN (20:00)
[2020-04-06] MEDS ORDERED: POLYETHYLENE GLYCOL 17 GM PACKET PO PRN (20:00)
--- NOTE | 2020-04-06 20:13 | NUR ---
attempt to call report. No answer
--- NOTE | 2020-04-06 20:33 | NUR ---
Report to Jerri. Pt to unit on gurmely to rm [id number]
[2020-04-06 20:59] VITALS: BP 162/83
[2020-04-06] MEDS: metFORMIN 500 MG TABLET PO SCH (21:32)
[2020-04-06] MEDS: HEPARIN 5,000 UNITS/ML, 1ML SQ SCH (21:32)
[2020-04-06] MEDS ORDERED: VANCOMYCIN 1,300 MG in SODIUM CHLORIDE 0.9% 250 ML IV ONE (22:00)
[2020-04-06] MEDS ORDERED: PHARMACOKINETIC MONITORING MC PRN (22:00)
[2020-04-06] MEDS: AMPICILLIN/SULBACTAM 3 GM in SODIUM CHLORIDE 0.9% 100 ML IV SCH (22:20)
[2020-04-07 00:29] VITALS: BP 119/59
[2020-04-07] MEDS: AMPICILLIN/SULBACTAM 3 GM in SODIUM CHLORIDE 0.9% 100 ML IV SCH ×4 (04:34→22:23)
[2020-04-07] MEDS: HEPARIN 5,000 UNITS/ML, 1ML SQ SCH ×3 (04:34→20:38)
[2020-04-07 05:04] LABS: BASOPHILS % (AUTO) 1 % (0-1); EOSINOPHILS % (AUTO) 2 % (1-7); LYMPHOCYTES % (AUTO) 33 % (22-44); MEAN CORPUSCULAR HGB CONC 33.2 g/dL (32.4-35.8); MEAN PLATELET VOLUME 6.9 fL (7.4-10.4); MONOCYTES % (AUTO) 8 % (2-9); NEUTROPHILS % (AUTO) 57 % (42-75); PLATELET COUNT 325 x10^3/uL (130-400); RED CELL DISTRIBUTION WIDTH 14.5 % (9.6-15.2)
[2020-04-07 05:05] LABS: MD NO
[2020-04-07 05:11] LABS: ANION GAP 8 mmol/L (5-15); CALCIUM 8.4 mg/dL (8.5-10.1); CHLORIDE 111 mmol/L (98-107)
[2020-04-07 05:13] LABS: CREATININE 0.58 mg/dL (0.55-1.02)
[2020-04-07 07:07] VITALS: BP 120/68
[2020-04-07] MEDS ORDERED: GLUCAGON 1 MG IM PRN (07:30)
[2020-04-07] MEDS ORDERED: DEXTROSE 50%, 50ML SYRINGE IVPush PRN (07:30)
[2020-04-07] MEDS ORDERED: DEXTROSE 4 GM TAB.CHEW PO PRN (07:30)
[2020-04-07] MEDS: INSULIN LISPRO 100 UNITS/ML, PEN SQ-INSULIN SCH ×4 (07:30→20:38)
[2020-04-07] MEDS: metFORMIN 500 MG TABLET PO SCH ×2 (08:44→17:00)
[2020-04-07] MEDS: SENNA/DOCUSATE TABLET PO SCH ×2 (08:44→08:53)
[2020-04-07] MEDS: CHOLECALCIFEROL 1,000 UNIT TABLET PO SCH (08:44)
[2020-04-07] MEDS: SODIUM CHLORIDE FLUSH 10ML SYR IVF SCH ×2 (08:45→20:37)
[2020-04-07] MEDS: ATORVASTATIN 20 MG TABLET PO SCH ×2 (08:53→08:54)
[2020-04-07] MEDS ORDERED: LINAGLIPTIN 5 MG TAB PO SCH (09:00)
[2020-04-07 14:51] VITALS: BP 117/70
[2020-04-07 19:00] VITALS: BP 125/71
[2020-04-07] MEDS: VANCOMYCIN 1,100 MG in SODIUM CHLORIDE 0.9% 250 ML IV SCH (23:33)
[2020-04-08 00:20] VITALS: BP 122/63
[2020-04-08] MEDS: AMPICILLIN/SULBACTAM 3 GM in SODIUM CHLORIDE 0.9% 100 ML IV SCH ×4 (04:12→21:56)
[2020-04-08] MEDS: HEPARIN 5,000 UNITS/ML, 1ML SQ SCH ×3 (04:13→20:20)
[2020-04-08 05:19] LABS: ANION GAP 4 mmol/L (5-15); CALCIUM 8.9 mg/dL (8.5-10.1); CHLORIDE 108 mmol/L (98-107)
[2020-04-08 05:21] LABS: CREATININE 0.56 mg/dL (0.55-1.02)
[2020-04-08] MEDS: INSULIN LISPRO 100 UNITS/ML, PEN SQ-INSULIN SCH ×4 (07:00→20:20)
[2020-04-08 07:19] VITALS: BP 98/53
[2020-04-08] MEDS: metFORMIN 500 MG TABLET PO SCH ×2 (08:00→16:02)
[2020-04-08] MEDS: ATORVASTATIN 20 MG TABLET PO SCH (08:00)
[2020-04-08] MEDS: SENNA/DOCUSATE TABLET PO SCH (08:01)
[2020-04-08] MEDS: CHOLECALCIFEROL 1,000 UNIT TABLET PO SCH (08:01)
[2020-04-08] MEDS: SODIUM CHLORIDE FLUSH 10ML SYR IVF SCH ×2 (11:01→20:19)
[2020-04-08 13:14] VITALS: BP 100/64
[2020-04-08] MEDS: ACETAMINOPHEN 325 MG TABLET PO PRN (14:02)
[2020-04-08 15:04] VITALS: BP 91/61
[2020-04-08] MEDS: ASPIRIN 81 MG TABLET EC PO SCH (15:58)
[2020-04-08 19:21] VITALS: BP 92/60
[2020-04-08] MEDS: VANCOMYCIN 1,100 MG in SODIUM CHLORIDE 0.9% 250 ML IV SCH (23:29)
[2020-04-09 00:01] VITALS: BP 113/56
[2020-04-09] MEDS: AMPICILLIN/SULBACTAM 3 GM in SODIUM CHLORIDE 0.9% 100 ML IV SCH ×4 (04:09→22:26)
[2020-04-09] MEDS: HEPARIN 5,000 UNITS/ML, 1ML SQ SCH ×3 (06:25→20:55)
[2020-04-09] MEDS: ASPIRIN 81 MG TABLET EC PO SCH (06:25)
[2020-04-09 06:28] LABS: BASOPHILS % (AUTO) 1 % (0-1); EOSINOPHILS % (AUTO) 2 % (1-7); LYMPHOCYTES % (AUTO) 31 % (22-44); MEAN CORPUSCULAR HEMOGLOBIN 30.3 pg (27.0-34.8); MEAN CORPUSCULAR HGB CONC 33.1 g/dL (32.4-35.8); MEAN PLATELET VOLUME 7.2 fL (7.4-10.4); MONOCYTES % (AUTO) 10 % (2-9); NEUTROPHILS % (AUTO) 56 % (42-75); PLATELET COUNT 275 x10^3/uL (130-400); RED BLOOD COUNT 4.14 x10^6/uL (3.82-5.3); RED CELL DISTRIBUTION WIDTH 14.7 % (9.6-15.2)
[2020-04-09 06:29] LABS: MD NO
[2020-04-09 06:46] LABS: ANION GAP 8 mmol/L (5-15); CALCIUM 8.3 mg/dL (8.5-10.1); CHLORIDE 104 mmol/L (98-107)
[2020-04-09 06:50] LABS: CREATININE 0.52 mg/dL (0.55-1.02)
[2020-04-09] MEDS: INSULIN LISPRO 100 UNITS/ML, PEN SQ-INSULIN SCH ×4 (07:00→20:54)
[2020-04-09] MEDS: SENNA/DOCUSATE TABLET PO SCH (07:15)
[2020-04-09] MEDS: metFORMIN 500 MG TABLET PO SCH ×2 (07:15→16:52)
[2020-04-09] MEDS: SODIUM CHLORIDE FLUSH 10ML SYR IVF SCH ×2 (07:15→20:55)
[2020-04-09] MEDS: ATORVASTATIN 20 MG TABLET PO SCH (07:15)
[2020-04-09] MEDS: CHOLECALCIFEROL 1,000 UNIT TABLET PO SCH (07:16)
[2020-04-09 07:29] VITALS: BP 112/69
[2020-04-09] MEDS: ACETAMINOPHEN 325 MG TABLET PO PRN (10:28)
[2020-04-09 12:27] VITALS: BP 95/59
[2020-04-09 19:10] VITALS: BP 103/66
[2020-04-09] MEDS: VANCOMYCIN 1,100 MG in SODIUM CHLORIDE 0.9% 250 ML IV SCH (23:39)
[2020-04-10 01:02] VITALS: BP 110/70
[2020-04-10] MEDS: AMPICILLIN/SULBACTAM 3 GM in SODIUM CHLORIDE 0.9% 100 ML IV SCH ×4 (03:54→22:14)
[2020-04-10] MEDS: ASPIRIN 81 MG TABLET EC PO SCH ×2 (05:44→19:16)
[2020-04-10] MEDS: HEPARIN 5,000 UNITS/ML, 1ML SQ SCH ×4 (05:44→19:15)
[2020-04-10 06:35] VITALS: BP 105/55
[2020-04-10] MEDS: INSULIN LISPRO 100 UNITS/ML, PEN SQ-INSULIN SCH ×4 (07:28→20:02)
[2020-04-10] MEDS: CHOLECALCIFEROL 1,000 UNIT TABLET PO SCH (08:52)
[2020-04-10] MEDS: SENNA/DOCUSATE TABLET PO SCH ×2 (08:52→08:57)
[2020-04-10] MEDS: ATORVASTATIN 20 MG TABLET PO SCH (08:52)
[2020-04-10] MEDS: metFORMIN 500 MG TABLET PO SCH ×2 (08:52→16:48)
[2020-04-10] MEDS: SODIUM CHLORIDE FLUSH 10ML SYR IVF SCH ×2 (08:54→20:02)
[2020-04-10 12:50] VITALS: BP 108/49
[2020-04-10 18:40] VITALS: BP 108/64
[2020-04-10] MEDS: VANCOMYCIN 1,100 MG in SODIUM CHLORIDE 0.9% 250 ML IV SCH (23:15)
[2020-04-11 01:03] VITALS: BP 122/70
[2020-04-11] MEDS: AMPICILLIN/SULBACTAM 3 GM in SODIUM CHLORIDE 0.9% 100 ML IV SCH ×5 (03:47→21:45)
[2020-04-11 06:01] LABS: BASOPHILS % (AUTO) 1 % (0-1); EOSINOPHILS % (AUTO) 1 % (1-7); LYMPHOCYTES % (AUTO) 26 % (22-44); MEAN CORPUSCULAR HGB CONC 33.6 g/dL (32.4-35.8); MEAN PLATELET VOLUME 7.4 fL (7.4-10.4); MONOCYTES % (AUTO) 10 % (2-9); NEUTROPHILS % (AUTO) 63 % (42-75); PLATELET COUNT 267 x10^3/uL (130-400); RED BLOOD COUNT 4.04 x10^6/uL (3.82-5.3); RED CELL DISTRIBUTION WIDTH 14.8 % (9.6-15.2)
[2020-04-11 06:16] LABS: MD NO
[2020-04-11 06:24] LABS: CHLORIDE 107 mmol/L (98-107)
[2020-04-11 06:29] LABS: ANION GAP 10 mmol/L (5-15); CALCIUM 8.2 mg/dL (8.5-10.1); CREATININE 0.42 mg/dL (0.55-1.02)
[2020-04-11] MEDS: INSULIN LISPRO 100 UNITS/ML, PEN SQ-INSULIN SCH ×4 (07:24→21:45)
[2020-04-11] MEDS: metFORMIN 500 MG TABLET PO SCH ×2 (08:18→17:45)
[2020-04-11] MEDS: CHOLECALCIFEROL 1,000 UNIT TABLET PO SCH (08:18)
[2020-04-11] MEDS: SENNA/DOCUSATE TABLET PO SCH (08:18)
[2020-04-11] MEDS: ATORVASTATIN 20 MG TABLET PO SCH (08:18)
[2020-04-11] MEDS: SODIUM CHLORIDE FLUSH 10ML SYR IVF SCH ×2 (08:21→21:46)
[2020-04-11 08:43] VITALS: BP 118/68
[2020-04-11] MEDS ORDERED: FLUMAZENIL 0.1 MG/1 ML, 5ML ONE (10:52)
[2020-04-11] MEDS ORDERED: MIDAZOLAM 1 MG/ML, 5ML ONE (10:52)
[2020-04-11] MEDS ORDERED: FENTANYL PF 100 MCG/2ML ONE (10:52)
[2020-04-11] MEDS ORDERED: NALOXONE 1 MG/ML, 2ML ONE (10:53)
[2020-04-11] MEDS ORDERED: PROTAMINE SULFATE 10 MG/ML, 25ML ONE (10:53)
[2020-04-11] MEDS ORDERED: HEPARIN 1,000 UNITS/ML, 10ML ONE (10:53)
[2020-04-11] MEDS ORDERED: LIDOCAINE 1%, 10ML ONE (11:00)
[2020-04-11] MEDS ORDERED: LIDOCAINE GEL 2%, 5ML ONE (11:03)
[2020-04-11] MEDS: HEPARIN 5,000 UNITS/ML, 1ML SQ SCH ×2 (13:26→21:46)
[2020-04-11] MEDS ORDERED: CLOPIDOGREL 75 MG TABLET ONE (13:41)
[2020-04-11 14:16] VITALS: BP 118/62
[2020-04-11 19:58] VITALS: BP 109/61
[2020-04-11] MEDS: VANCOMYCIN 1,100 MG in SODIUM CHLORIDE 0.9% 250 ML IV SCH (23:01)
[2020-04-12 00:42] VITALS: BP 113/65
[2020-04-12] MEDS: AMPICILLIN/SULBACTAM 3 GM in SODIUM CHLORIDE 0.9% 100 ML IV SCH ×4 (03:29→22:26)
[2020-04-12] MEDS: HEPARIN 5,000 UNITS/ML, 1ML SQ SCH ×3 (05:22→20:53)
[2020-04-12] MEDS: ASPIRIN 81 MG TABLET EC PO SCH (05:22)
[2020-04-12 05:34] LABS: BASOPHILS % (AUTO) 1 % (0-1); EOSINOPHILS % (AUTO) 2 % (1-7); LYMPHOCYTES % (AUTO) 29 % (22-44); MEAN CORPUSCULAR HEMOGLOBIN 30.1 pg (27.0-34.8); MEAN CORPUSCULAR HGB CONC 33.3 g/dL (32.4-35.8); MEAN PLATELET VOLUME 7.5 fL (7.4-10.4); MONOCYTES % (AUTO) 11 % (2-9); NEUTROPHILS % (AUTO) 58 % (42-75); PLATELET COUNT 259 x10^3/uL (130-400); RED BLOOD COUNT 4.01 x10^6/uL (3.82-5.3); RED CELL DISTRIBUTION WIDTH 14.7 % (9.6-15.2)
[2020-04-12 05:40] LABS: CHLORIDE 106 mmol/L (98-107)
[2020-04-12 05:45] LABS: ANION GAP 11 mmol/L (5-15); CALCIUM 7.8 mg/dL (8.5-10.1); CREATININE 0.41 mg/dL (0.55-1.02)
[2020-04-12 05:46] LABS: MD NO
[2020-04-12] MEDS: INSULIN LISPRO 100 UNITS/ML, PEN SQ-INSULIN SCH ×4 (07:00→21:00)
[2020-04-12 07:02] VITALS: BP 120/65
[2020-04-12] MEDS ORDERED: POTASSIUM CHLORIDE 20 MEQ TAB.ER.PRT PO ONE (08:00)
[2020-04-12] MEDS: SENNA/DOCUSATE TABLET PO SCH (08:03)
[2020-04-12] MEDS: ATORVASTATIN 20 MG TABLET PO SCH (08:03)
[2020-04-12] MEDS: metFORMIN 500 MG TABLET PO SCH ×2 (08:03→16:08)
[2020-04-12] MEDS: CHOLECALCIFEROL 1,000 UNIT TABLET PO SCH (08:03)
[2020-04-12] MEDS: SODIUM CHLORIDE FLUSH 10ML SYR IVF SCH ×2 (08:04→21:04)
[2020-04-12] MEDS: CLOPIDOGREL 75 MG TABLET PO SCH (11:48)
[2020-04-12 12:56] VITALS: BP 101/61
[2020-04-12 18:57] VITALS: BP 108/68
[2020-04-12] MEDS: ACETAMINOPHEN 325 MG TABLET PO PRN (20:52)
[2020-04-12] MEDS: VANCOMYCIN 1,100 MG in SODIUM CHLORIDE 0.9% 250 ML IV SCH (23:28)
[2020-04-13 01:14] VITALS: BP 104/65
[2020-04-13] MEDS: AMPICILLIN/SULBACTAM 3 GM in SODIUM CHLORIDE 0.9% 100 ML IV SCH ×3 (03:41→20:03)
[2020-04-13] MEDS: ASPIRIN 81 MG TABLET EC PO SCH (05:26)
[2020-04-13] MEDS: HEPARIN 5,000 UNITS/ML, 1ML SQ SCH ×3 (05:26→20:03)
[2020-04-13 05:41] LABS: BASOPHILS % (AUTO) 1 % (0-1); EOSINOPHILS % (AUTO) 2 % (1-7); LYMPHOCYTES % (AUTO) 30 % (22-44); MEAN CORPUSCULAR HEMOGLOBIN 30.2 pg (27.0-34.8); MEAN CORPUSCULAR HGB CONC 33.5 g/dL (32.4-35.8); MEAN PLATELET VOLUME 7.5 fL (7.4-10.4); MONOCYTES % (AUTO) 10 % (2-9); NEUTROPHILS % (AUTO) 57 % (42-75); PLATELET COUNT 240 x10^3/uL (130-400); RED BLOOD COUNT 4.14 x10^6/uL (3.82-5.3); RED CELL DISTRIBUTION WIDTH 14.5 % (9.6-15.2)
[2020-04-13 05:44] LABS: ANION GAP 7 mmol/L (5-15); CALCIUM 8.8 mg/dL (8.5-10.1); CHLORIDE 108 mmol/L (98-107)
[2020-04-13 06:01] LABS: MD NO
[2020-04-13 06:47] VITALS: BP 128/69
[2020-04-13] MEDS: INSULIN LISPRO 100 UNITS/ML, PEN SQ-INSULIN SCH ×4 (07:00→20:38)
[2020-04-13] MEDS: SODIUM CHLORIDE FLUSH 10ML SYR IVF SCH ×2 (09:37→20:04)
[2020-04-13] MEDS: CLOPIDOGREL 75 MG TABLET PO SCH (09:38)
[2020-04-13] MEDS: CHOLECALCIFEROL 1,000 UNIT TABLET PO SCH (09:38)
[2020-04-13] MEDS: SENNA/DOCUSATE TABLET PO SCH (09:38)
[2020-04-13] MEDS: NYSTATIN 500,000 UNITS/5 ML UDC PO SCH ×3 (09:38→20:03)
[2020-04-13] MEDS: ATORVASTATIN 20 MG TABLET PO SCH (09:38)
[2020-04-13 13:58] VITALS: BP 104/61
[2020-04-13] MEDS: ACETAMINOPHEN 325 MG TABLET PO PRN (14:11)
[2020-04-13] MEDS: VANCOMYCIN 1,200 MG in SODIUM CHLORIDE 0.9% 250 ML IV SCH (17:17)
[2020-04-13] MEDS ORDERED: POTASSIUM CHLORIDE 20 MEQ TAB.ER.PRT PO ONE (18:30)
[2020-04-13 19:19] VITALS: BP 102/65
[2020-04-14 01:04] VITALS: BP 98/61
[2020-04-14] MEDS: AMPICILLIN/SULBACTAM 3 GM in SODIUM CHLORIDE 0.9% 100 ML IV SCH ×3 (03:43→19:42)
[2020-04-14 05:33] LABS: BASOPHILS % (AUTO) 0 % (0-1); EOSINOPHILS % (AUTO) 0 % (1-7); LYMPHOCYTES % (AUTO) 18 % (22-44); MEAN CORPUSCULAR HEMOGLOBIN 30.4 pg (27.0-34.8); MEAN CORPUSCULAR HGB CONC 33.7 g/dL (32.4-35.8); MEAN PLATELET VOLUME 7.6 fL (7.4-10.4); MONOCYTES % (AUTO) 7 % (2-9); NEUTROPHILS % (AUTO) 75 % (42-75); PLATELET COUNT 245 x10^3/uL (130-400); RED BLOOD COUNT 4.02 x10^6/uL (3.82-5.3); RED CELL DISTRIBUTION WIDTH 14.6 % (9.6-15.2)
[2020-04-14 05:34] LABS: MD NO
[2020-04-14 05:46] LABS: ANION GAP 10 mmol/L (5-15); CALCIUM 8.7 mg/dL (8.5-10.1); CHLORIDE 108 mmol/L (98-107)
[2020-04-14] MEDS: HEPARIN 5,000 UNITS/ML, 1ML SQ SCH ×3 (05:47→22:19)
[2020-04-14] MEDS: ASPIRIN 81 MG TABLET EC PO SCH (05:47)
[2020-04-14] MEDS: INSULIN LISPRO 100 UNITS/ML, PEN SQ-INSULIN SCH ×4 (07:00→21:00)
[2020-04-14 08:17] VITALS: BP 103/63
[2020-04-14] MEDS: SENNA/DOCUSATE TABLET PO SCH (09:34)
[2020-04-14] MEDS: SODIUM CHLORIDE FLUSH 10ML SYR IVF SCH ×2 (09:34→22:20)
[2020-04-14] MEDS: NYSTATIN 500,000 UNITS/5 ML UDC PO SCH ×3 (09:34→22:19)
[2020-04-14] MEDS: CLOPIDOGREL 75 MG TABLET PO SCH (09:35)
[2020-04-14] MEDS: CHOLECALCIFEROL 1,000 UNIT TABLET PO SCH (09:35)
[2020-04-14] MEDS: ATORVASTATIN 20 MG TABLET PO SCH (09:35)
[2020-04-14 13:25] VITALS: BP 97/61
[2020-04-14] MEDS: LACTOBACILLUS 1GM/ PACKET PO SCH ×3 (13:32→22:19)
[2020-04-14] MEDS: VANCOMYCIN 1,200 MG in SODIUM CHLORIDE 0.9% 250 ML IV SCH (17:14)
[2020-04-14 19:38] VITALS: BP 107/67
[2020-04-15 00:50] VITALS: BP 130/67
[2020-04-15] MEDS: AMPICILLIN/SULBACTAM 3 GM in SODIUM CHLORIDE 0.9% 100 ML IV SCH ×3 (03:07→18:44)
[2020-04-15 06:29] LABS: BASOPHILS % (AUTO) 1 % (0-1); EOSINOPHILS % (AUTO) 2 % (1-7); LYMPHOCYTES % (AUTO) 29 % (22-44); MD NO; MEAN CORPUSCULAR HGB CONC 33.5 g/dL (32.4-35.8); MEAN PLATELET VOLUME 7.6 fL (7.4-10.4); MONOCYTES % (AUTO) 8 % (2-9); NEUTROPHILS % (AUTO) 60 % (42-75); PLATELET COUNT 299 x10^3/uL (130-400); RED CELL DISTRIBUTION WIDTH 14.8 % (9.6-15.2)
[2020-04-15 06:43] LABS: ANION GAP 7 mmol/L (5-15); CALCIUM 8.4 mg/dL (8.5-10.1); CHLORIDE 108 mmol/L (98-107)
[2020-04-15] MEDS: HEPARIN 5,000 UNITS/ML, 1ML SQ SCH ×3 (06:44→22:03)
[2020-04-15] MEDS: ASPIRIN 81 MG TABLET EC PO SCH (06:44)
[2020-04-15 06:45] LABS: CREATININE 0.42 mg/dL (0.55-1.02)
[2020-04-15] MEDS: INSULIN LISPRO 100 UNITS/ML, PEN SQ-INSULIN SCH ×4 (06:51→22:03)
[2020-04-15 07:26] VITALS: BP 112/64
[2020-04-15] MEDS: ATORVASTATIN 20 MG TABLET PO SCH (07:53)
[2020-04-15] MEDS: SENNA/DOCUSATE TABLET PO SCH (07:55)
[2020-04-15] MEDS: CLOPIDOGREL 75 MG TABLET PO SCH (07:56)
[2020-04-15] MEDS: CHOLECALCIFEROL 1,000 UNIT TABLET PO SCH (07:57)
[2020-04-15] MEDS: NYSTATIN 500,000 UNITS/5 ML UDC PO SCH ×3 (08:02→22:03)
[2020-04-15] MEDS: LACTOBACILLUS 1GM/ PACKET PO SCH ×3 (08:04→22:03)
[2020-04-15] MEDS: SODIUM CHLORIDE FLUSH 10ML SYR IVF SCH ×2 (09:00→22:00)
[2020-04-15 13:26] VITALS: BP 95/59
[2020-04-15] MEDS: VANCOMYCIN 1,200 MG in SODIUM CHLORIDE 0.9% 250 ML IV SCH (17:17)
[2020-04-15] MEDS ORDERED: SENNA/DOCUSATE TABLET PO PRN (18:00)
[2020-04-15] MEDS ORDERED: POTASSIUM CHLORIDE 40 MEQ in SODIUM CHLORIDE 0.9% 500 ML IV ONE (18:30)
[2020-04-15 19:15] VITALS: BP 117/63
[2020-04-16 00:44] VITALS: BP 120/72
[2020-04-16] MEDS: AMPICILLIN/SULBACTAM 3 GM in SODIUM CHLORIDE 0.9% 100 ML IV SCH ×3 (03:06→21:21)
[2020-04-16] MEDS: ASPIRIN 81 MG TABLET EC PO SCH (06:03)
[2020-04-16] MEDS: HEPARIN 5,000 UNITS/ML, 1ML SQ SCH ×3 (06:03→22:11)
[2020-04-16 06:29] LABS: CALCIUM 8.4 mg/dL (8.5-10.1); CHLORIDE 110 mmol/L (98-107)
[2020-04-16 06:33] LABS: ANION GAP 6 mmol/L (5-15); CREATININE 0.49 mg/dL (0.55-1.02)
[2020-04-16 06:52] LABS: BASOPHILS % (AUTO) 1 % (0-1); EOSINOPHILS % (AUTO) 0 % (1-7); LYMPHOCYTES % (AUTO) 26 % (22-44); MEAN CORPUSCULAR HEMOGLOBIN 29.8 pg (27.0-34.8); MEAN PLATELET VOLUME 8.1 fL (7.4-10.4); MONOCYTES % (AUTO) 8 % (2-9); NEUTROPHILS % (AUTO) 65 % (42-75); PLATELET COUNT 276 x10^3/uL (130-400); RED BLOOD COUNT 4.08 x10^6/uL (3.82-5.3)
[2020-04-16 06:56] LABS: MD NO
[2020-04-16 06:57] VITALS: BP 124/67
[2020-04-16] MEDS: INSULIN LISPRO 100 UNITS/ML, PEN SQ-INSULIN SCH ×5 (07:00→21:30)
[2020-04-16] MEDS: SODIUM PHOSPHATE 10 MMOL in SODIUM CHLORIDE 0.9% 500 ML IV ONE ×2 (08:00→09:09)
[2020-04-16] MEDS: SODIUM CHLORIDE FLUSH 10ML SYR IVF SCH ×2 (09:00→21:22)
[2020-04-16] MEDS ORDERED: INSULIN GLARGINE 100 UNITS/ML, PEN SQ-INSULIN SCH (09:00)
[2020-04-16] MEDS: LACTOBACILLUS 1GM/ PACKET PO SCH ×3 (09:17→21:22)
[2020-04-16] MEDS: CLOPIDOGREL 75 MG TABLET PO SCH (09:17)
[2020-04-16] MEDS: CHOLECALCIFEROL 1,000 UNIT TABLET PO SCH (09:17)
[2020-04-16] MEDS: ATORVASTATIN 20 MG TABLET PO SCH (09:17)
[2020-04-16] MEDS: NYSTATIN 500,000 UNITS/5 ML UDC PO SCH ×3 (09:17→21:22)
[2020-04-16 14:10] VITALS: BP 102/55
[2020-04-16] MEDS: VANCOMYCIN 1,200 MG in SODIUM CHLORIDE 0.9% 250 ML IV SCH (16:54)
[2020-04-16 20:01] VITALS: BP 118/63
[2020-04-16 22:35] LABS: CLOSTRIDIUM DIFFICILE ANTIGEN NEGATIVE; CLOSTRIDIUM DIFFICILE TOXIN NEGATIVE (Negative)
[2020-04-17 01:14] VITALS: BP 120/70
[2020-04-17] MEDS: ASPIRIN 81 MG TABLET EC PO SCH (05:49)
[2020-04-17] MEDS: AMPICILLIN/SULBACTAM 3 GM in SODIUM CHLORIDE 0.9% 100 ML IV SCH ×3 (05:49→21:58)
[2020-04-17] MEDS: HEPARIN 5,000 UNITS/ML, 1ML SQ SCH ×3 (05:50→21:58)
[2020-04-17 06:19] VITALS: BP 131/65
[2020-04-17] MEDS: INSULIN LISPRO 100 UNITS/ML, PEN SQ-INSULIN SCH ×4 (07:00→21:58)
[2020-04-17] MEDS: INSULIN GLARGINE 100 UNITS/ML, PEN SQ-INSULIN SCH (09:01)
[2020-04-17] MEDS: LACTOBACILLUS 1GM/ PACKET PO SCH ×3 (09:01→21:58)
[2020-04-17] MEDS: CHOLECALCIFEROL 1,000 UNIT TABLET PO SCH (09:08)
[2020-04-17] MEDS: NYSTATIN 500,000 UNITS/5 ML UDC PO SCH ×3 (09:08→21:58)
[2020-04-17] MEDS: ATORVASTATIN 20 MG TABLET PO SCH (09:08)
[2020-04-17] MEDS: CLOPIDOGREL 75 MG TABLET PO SCH (09:08)
[2020-04-17] MEDS: SODIUM CHLORIDE FLUSH 10ML SYR IVF SCH ×2 (09:09→21:58)
[2020-04-17] MEDS: metFORMIN 500 MG TABLET PO SCH (11:37)
[2020-04-17 12:06] VITALS: BP 149/71
[2020-04-17] MEDS: VANCOMYCIN 1,200 MG in SODIUM CHLORIDE 0.9% 250 ML IV SCH (17:08)
[2020-04-17 18:41] VITALS: BP 110/63
[2020-04-18 00:08] VITALS: BP 109/60
[2020-04-18 05:23] LABS: ANION GAP 6 mmol/L (5-15); CALCIUM 8.9 mg/dL (8.5-10.1); CHLORIDE 107 mmol/L (98-107); CREATININE 0.53 mg/dL (0.55-1.02)
[2020-04-18 05:25] LABS: BASOPHILS % (AUTO) 1 % (0-1); EOSINOPHILS % (AUTO) 3 % (1-7); LYMPHOCYTES % (AUTO) 35 % (22-44); MEAN CORPUSCULAR HEMOGLOBIN 30.2 pg (27.0-34.8); MEAN CORPUSCULAR HGB CONC 33.4 g/dL (32.4-35.8); MEAN PLATELET VOLUME 7.3 fL (7.4-10.4); MONOCYTES % (AUTO) 11 % (2-9); NEUTROPHILS % (AUTO) 51 % (42-75); PLATELET COUNT 330 x10^3/uL (130-400); RED BLOOD COUNT 3.84 x10^6/uL (3.82-5.3); RED CELL DISTRIBUTION WIDTH 14.7 % (9.6-15.2)
[2020-04-18 05:52] LABS: MD SCAN
[2020-04-18] MEDS: HEPARIN 5,000 UNITS/ML, 1ML SQ SCH ×3 (06:14→21:16)
[2020-04-18] MEDS: AMPICILLIN/SULBACTAM 3 GM in SODIUM CHLORIDE 0.9% 100 ML IV SCH ×3 (06:14→21:15)
[2020-04-18] MEDS: ASPIRIN 81 MG TABLET EC PO SCH (06:14)
[2020-04-18 06:46] VITALS: BP 109/62
[2020-04-18] MEDS: INSULIN LISPRO 100 UNITS/ML, PEN SQ-INSULIN SCH ×4 (07:58→21:17)
[2020-04-18] MEDS: LACTOBACILLUS 1GM/ PACKET PO SCH ×3 (08:20→21:16)
[2020-04-18] MEDS: CLOPIDOGREL 75 MG TABLET PO SCH (08:20)
[2020-04-18] MEDS: CHOLECALCIFEROL 1,000 UNIT TABLET PO SCH (08:20)
[2020-04-18] MEDS: ATORVASTATIN 20 MG TABLET PO SCH (08:20)
[2020-04-18] MEDS: INSULIN GLARGINE 100 UNITS/ML, PEN SQ-INSULIN SCH (08:20)
[2020-04-18] MEDS: NYSTATIN 500,000 UNITS/5 ML UDC PO SCH ×3 (08:21→21:17)
[2020-04-18] MEDS: HYDROcodone/APAP 5/325 TABLET PO PRN ×2 (11:24→18:31)
[2020-04-18] MEDS: metFORMIN 500 MG TABLET PO SCH (11:29)
[2020-04-18] MEDS: SODIUM CHLORIDE FLUSH 10ML SYR IVF SCH ×2 (11:32→21:16)
[2020-04-18 13:32] VITALS: BP 97/60
[2020-04-18 19:37] VITALS: BP 129/66
[2020-04-19 02:34] VITALS: BP 116/65
[2020-04-19] MEDS: ASPIRIN 81 MG TABLET EC PO SCH (05:37)
[2020-04-19] MEDS: AMPICILLIN/SULBACTAM 3 GM in SODIUM CHLORIDE 0.9% 100 ML IV SCH ×3 (05:37→23:27)
[2020-04-19] MEDS: HEPARIN 5,000 UNITS/ML, 1ML SQ SCH ×4 (05:41→22:00)
[2020-04-19] MEDS: INSULIN LISPRO 100 UNITS/ML, PEN SQ-INSULIN SCH ×4 (07:00→22:18)
[2020-04-19 07:40] VITALS: BP 95/58
[2020-04-19] MEDS: SODIUM CHLORIDE FLUSH 10ML SYR IVF SCH ×3 (08:29→22:16)
[2020-04-19] MEDS: NYSTATIN 500,000 UNITS/5 ML UDC PO SCH ×3 (08:44→22:17)
[2020-04-19] MEDS: LACTOBACILLUS 1GM/ PACKET PO SCH ×3 (08:44→22:14)
[2020-04-19] MEDS: CLOPIDOGREL 75 MG TABLET PO SCH (08:44)
[2020-04-19] MEDS: CHOLECALCIFEROL 1,000 UNIT TABLET PO SCH (08:44)
[2020-04-19] MEDS: ATORVASTATIN 20 MG TABLET PO SCH (08:44)
[2020-04-19] MEDS: INSULIN GLARGINE 100 UNITS/ML, PEN SQ-INSULIN SCH (09:00)
[2020-04-19 13:00] VITALS: BP 91/55
[2020-04-19] MEDS: metFORMIN 500 MG TABLET PO SCH (13:14)
[2020-04-19] MEDS ORDERED: ASPI81TA45 PO (14:23)
[2020-04-19] MEDS ORDERED: CLOP75TA PO (14:23)
[2020-04-19] MEDS ORDERED: ACID1GRA3 PO (14:23)
[2020-04-19] MEDS ORDERED: HYDR-1067 PO (14:23)
[2020-04-19] MEDS ORDERED: INSU100I13 SQ-INSULIN (14:24)
[2020-04-19] MEDS ORDERED: NYST1000 PO (14:24)
[2020-04-19] MEDS ORDERED: METF500T PO (14:24)
[2020-04-19] MEDS ORDERED: INSU100I11 SQ-INSULIN (14:24)
[2020-04-19] MEDS ORDERED: AMOX1TAB64 PO (14:24)
[2020-04-19 18:48] VITALS: BP 125/68
[2020-04-20] VITALS (7 sets, daily range): BP systolic 88–146; BP diastolic 50–74
[2020-04-20] MEDS: HEPARIN 5,000 UNITS/ML, 1ML SQ SCH ×4 (06:00→21:09)
[2020-04-20] MEDS: ASPIRIN 81 MG TABLET EC PO SCH (06:00)
[2020-04-20] MEDS: AMPICILLIN/SULBACTAM 3 GM in SODIUM CHLORIDE 0.9% 100 ML IV SCH ×3 (06:27→22:53)
[2020-04-20] MEDS: INSULIN LISPRO 100 UNITS/ML, PEN SQ-INSULIN SCH ×4 (07:00→21:00)
[2020-04-20] MEDS: LACTOBACILLUS 1GM/ PACKET PO SCH ×3 (07:44→21:01)
[2020-04-20] MEDS: ATORVASTATIN 20 MG TABLET PO SCH (07:44)
[2020-04-20] MEDS: CLOPIDOGREL 75 MG TABLET PO SCH (07:44)
[2020-04-20] MEDS: NYSTATIN 500,000 UNITS/5 ML UDC PO SCH ×4 (07:44→21:01)
[2020-04-20] MEDS: CHOLECALCIFEROL 1,000 UNIT TABLET PO SCH (07:44)
[2020-04-20 07:52] LABS: BASOPHILS % (AUTO) 2 % (0-1); EOSINOPHILS % (AUTO) 4 % (1-7); LYMPHOCYTES % (AUTO) 39 % (22-44); MEAN CORPUSCULAR HEMOGLOBIN 30.4 pg (27.0-34.8); MEAN CORPUSCULAR HGB CONC 33.9 g/dL (32.4-35.8); MEAN PLATELET VOLUME 6.9 fL (7.4-10.4); MONOCYTES % (AUTO) 8 % (2-9); NEUTROPHILS % (AUTO) 48 % (42-75); PLATELET COUNT 394 x10^3/uL (130-400); RED BLOOD COUNT 3.74 x10^6/uL (3.82-5.3); RED CELL DISTRIBUTION WIDTH 15.2 % (9.6-15.2)
[2020-04-20] MEDS: SODIUM CHLORIDE FLUSH 10ML SYR IVF SCH ×2 (07:55→21:02)
[2020-04-20 08:04] LABS: ANION GAP 5 mmol/L (5-15); CALCIUM 8.5 mg/dL (8.5-10.1); CHLORIDE 105 mmol/L (98-107); CREATININE 0.45 mg/dL (0.55-1.02)
[2020-04-20 08:10] LABS: MD SCAN
[2020-04-20] MEDS: INSULIN GLARGINE 100 UNITS/ML, PEN SQ-INSULIN SCH (09:04)
[2020-04-20] MEDS: HYDROcodone/APAP 5/325 TABLET PO PRN (10:23)
[2020-04-20] MEDS: metFORMIN 500 MG TABLET PO SCH (12:02)
[2020-04-20] MEDS ORDERED: SODIUM CHLORIDE 0.9% 250 ML IV SCH (14:30)
[2020-04-20] MEDS ORDERED: ALBUMIN HUMAN 25% 100 ML IV ONE (14:30)
[2020-04-21 02:15] VITALS: BP 108/58
[2020-04-21 05:53] LABS: HCT (SEDRATE) 32.5 % (34.6-47.8)
[2020-04-21] MEDS: HEPARIN 5,000 UNITS/ML, 1ML SQ SCH ×3 (06:00→21:42)
[2020-04-21] MEDS: ASPIRIN 81 MG TABLET EC PO SCH (06:00)
[2020-04-21] MEDS: AMPICILLIN/SULBACTAM 3 GM in SODIUM CHLORIDE 0.9% 100 ML IV SCH ×3 (06:18→22:56)
[2020-04-21] MEDS: INSULIN LISPRO 100 UNITS/ML, PEN SQ-INSULIN SCH ×4 (07:00→21:00)
[2020-04-21 07:54] VITALS: BP 88/52
[2020-04-21 08:27] LABS: ANION GAP 4 mmol/L (5-15); CALCIUM 8.8 mg/dL (8.5-10.1); CHLORIDE 103 mmol/L (98-107); CREATININE 0.44 mg/dL (0.55-1.02)
[2020-04-21] MEDS: SODIUM CHLORIDE FLUSH 10ML SYR IVF SCH ×2 (09:00→21:46)
[2020-04-21] MEDS: LACTOBACILLUS 1GM/ PACKET PO SCH ×3 (09:08→21:46)
[2020-04-21] MEDS: ATORVASTATIN 20 MG TABLET PO SCH (09:08)
[2020-04-21] MEDS: CLOPIDOGREL 75 MG TABLET PO SCH (09:08)
[2020-04-21] MEDS: CHOLECALCIFEROL 1,000 UNIT TABLET PO SCH (09:08)
[2020-04-21] MEDS: NYSTATIN 500,000 UNITS/5 ML UDC PO SCH ×3 (09:08→21:47)
[2020-04-21] MEDS: INSULIN GLARGINE 100 UNITS/ML, PEN SQ-INSULIN SCH (09:13)
[2020-04-21 09:19] LABS: BASOPHILS % (AUTO) 1 % (0-1); EOSINOPHILS % (AUTO) 3 % (1-7); LYMPHOCYTES % (AUTO) 36 % (22-44); MEAN CORPUSCULAR HEMOGLOBIN 30.1 pg (27.0-34.8); MEAN CORPUSCULAR HGB CONC 33.4 g/dL (32.4-35.8); MEAN PLATELET VOLUME 7.1 fL (7.4-10.4); MONOCYTES % (AUTO) 10 % (2-9); NEUTROPHILS % (AUTO) 50 % (42-75); PLATELET COUNT 410 x10^3/uL (130-400); RED BLOOD COUNT 3.87 x10^6/uL (3.82-5.3); RED CELL DISTRIBUTION WIDTH 15.4 % (9.6-15.2)
[2020-04-21 09:22] LABS: MD NO
[2020-04-21 13:12] VITALS: BP 111/66
[2020-04-21] MEDS: metFORMIN 500 MG TABLET PO SCH (13:14)
[2020-04-21 19:12] VITALS: BP 127/55
[2020-04-22 00:46] VITALS: BP 97/48
[2020-04-22] MEDS: HEPARIN 5,000 UNITS/ML, 1ML SQ SCH ×3 (05:23→21:36)
[2020-04-22] MEDS: ASPIRIN 81 MG TABLET EC PO SCH (05:58)
[2020-04-22] MEDS: AMPICILLIN/SULBACTAM 3 GM in SODIUM CHLORIDE 0.9% 100 ML IV SCH ×3 (06:29→23:19)
[2020-04-22] MEDS: INSULIN LISPRO 100 UNITS/ML, PEN SQ-INSULIN SCH ×4 (07:00→20:28)
[2020-04-22 07:24] VITALS: BP 104/51
[2020-04-22] MEDS: NYSTATIN 500,000 UNITS/5 ML UDC PO SCH ×4 (09:00→20:28)
[2020-04-22] MEDS: INSULIN GLARGINE 100 UNITS/ML, PEN SQ-INSULIN SCH (09:00)
[2020-04-22] MEDS: SODIUM CHLORIDE FLUSH 10ML SYR IVF SCH ×2 (09:13→20:03)
[2020-04-22] MEDS: CHOLECALCIFEROL 1,000 UNIT TABLET PO SCH (09:44)
[2020-04-22] MEDS: LACTOBACILLUS 1GM/ PACKET PO SCH ×3 (09:45→20:27)
[2020-04-22] MEDS: CLOPIDOGREL 75 MG TABLET PO SCH (09:45)
[2020-04-22] MEDS: ATORVASTATIN 20 MG TABLET PO SCH (09:45)
[2020-04-22] MEDS: metFORMIN 500 MG TABLET PO SCH (12:52)
[2020-04-22 13:08] VITALS: BP 106/52
[2020-04-22 18:48] VITALS: BP 119/62
[2020-04-23 01:38] VITALS: BP 111/63
[2020-04-23] MEDS: ACETAMINOPHEN 325 MG TABLET PO PRN (02:55)
[2020-04-23] MEDS: ASPIRIN 81 MG TABLET EC PO SCH (05:34)
[2020-04-23] MEDS: HEPARIN 5,000 UNITS/ML, 1ML SQ SCH (05:35)
[2020-04-23 05:37] LABS: ALANINE AMINOTRANSFERASE 19 U/L (12-78); ALBUMIN 2.6 g/dL (3.4-5.0); ANION GAP 8 mmol/L (5-15); CALCIUM 8.3 mg/dL (8.5-10.1); CHLORIDE 103 mmol/L (98-107); CREATININE 0.41 mg/dL (0.55-1.02)
[2020-04-23 05:39] LABS: ALKALINE PHOSPHATASE 87 U/L (45-117); BILIRUBIN,TOTAL 1.2 mg/dL (0.2-1.0); TOTAL PROTEIN 6.3 g/dL (6.4-8.2)
[2020-04-23 05:40] LABS: HCT (SEDRATE) 33.2 % (34.6-47.8)
[2020-04-23 05:45] LABS: BASOPHILS % (AUTO) 1 % (0-1); EOSINOPHILS % (AUTO) 3 % (1-7); LYMPHOCYTES % (AUTO) 38 % (22-44); MEAN CORPUSCULAR HEMOGLOBIN 30.5 pg (27.0-34.8); MONOCYTES % (AUTO) 11 % (2-9); NEUTROPHILS % (AUTO) 47 % (42-75); PLATELET COUNT 470 x10^3/uL (130-400); RED BLOOD COUNT 3.74 x10^6/uL (3.82-5.3); RED CELL DISTRIBUTION WIDTH 14.8 % (9.6-15.2)
[2020-04-23 05:56] LABS: MD NO
[2020-04-23] MEDS: INSULIN LISPRO 100 UNITS/ML, PEN SQ-INSULIN SCH (07:30)
[2020-04-23] MEDS: AMPICILLIN/SULBACTAM 3 GM in SODIUM CHLORIDE 0.9% 100 ML IV SCH (07:38)
[2020-04-23 07:51] VITALS: BP 100/60
[2020-04-23] MEDS: NYSTATIN 500,000 UNITS/5 ML UDC PO SCH ×2 (09:00→10:18)
[2020-04-23] MEDS: LACTOBACILLUS 1GM/ PACKET PO SCH (10:18)
[2020-04-23] MEDS: ATORVASTATIN 20 MG TABLET PO SCH (10:18)
[2020-04-23] MEDS: CHOLECALCIFEROL 1,000 UNIT TABLET PO SCH (10:18)
[2020-04-23] MEDS: CLOPIDOGREL 75 MG TABLET PO SCH (10:18)
[2020-04-23] MEDS: metFORMIN 500 MG TABLET PO SCH (10:18)
[2020-04-23] MEDS: INSULIN GLARGINE 100 UNITS/ML, PEN SQ-INSULIN SCH (10:19)
[2020-04-23] MEDS: SODIUM CHLORIDE FLUSH 10ML SYR IVF SCH (10:19)
== END 2020-04-23 12:34 | disposition home or self-care (01) | DRG 253 ==
LOC: ED 19:11 → EDIP 19:24 → 3N 20:47
PROVIDERS: ADMIT Family Medicine; ATTEND Internal Medicine
PROC: 047L3ZZ Dilation of Left Femoral Artery, Percutaneous Approach (ICD-10-PCS; principal; 2020-04-11)
PROC: 047U3ZZ Dilation of Left Peroneal Artery, Percutaneous Approach (ICD-10-PCS; 2020-04-11)
PROC: 0JBR0ZZ Excision of Left Foot Subcutaneous Tissue and Fascia, Open Approach (ICD-10-PCS; 2020-04-11)
PROC: B44LZZZ Ultrasonography of Femoral Artery (ICD-10-PCS; 2020-04-11)
PROC: B4101ZZ Fluoroscopy of Abdominal Aorta using Low Osmolar Contrast (ICD-10-PCS; 2020-04-11)
PROC: B41J1ZZ Fluoroscopy of Other Lower Arteries using Low Osmolar Contrast (ICD-10-PCS; 2020-04-11)
PROC: B41G1ZZ Fluoroscopy of Left Lower Extremity Arteries using Low Osmolar Contrast (ICD-10-PCS; 2020-04-11)
PROC: B41J1ZZ Fluoroscopy of Other Lower Arteries using Low Osmolar Contrast (ICD-10-PCS; 2020-04-11)
DX: E11.51 Type 2 diabetes mellitus with diabetic peripheral angiopathy without gangrene (principal); F11.20 Opioid dependence, uncomplicated; L03.115 Cellulitis of right lower limb; L97.919 Non-pressure chronic ulcer of unspecified part of right lower leg with unspecified severity; L03.116 Cellulitis of left lower limb; L97.929 Non-pressure chronic ulcer of unspecified part of left lower leg with unspecified severity; E11.41 Type 2 diabetes mellitus with diabetic mononeuropathy; E11.649 Type 2 diabetes mellitus with hypoglycemia without coma; E78.5 Hyperlipidemia, unspecified; E83.39 Other disorders of phosphorus metabolism; E87.6 Hypokalemia; G89.29 Other chronic pain; E11.622 Type 2 diabetes mellitus with other skin ulcer; Z96.641 Presence of right artificial hip joint; I95.9 Hypotension, unspecified; M54.9 Dorsalgia, unspecified; D72.829 Elevated white blood cell count, unspecified; R53.81 Other malaise; Z79.02 Long term (current) use of antithrombotics/antiplatelets; Z79.4 Long term (current) use of insulin; Z79.899 Other long term (current) drug therapy; Z90.49 Acquired absence of other specified parts of digestive tract
CPT/HCPCS: 36415; 87106; 99285; J3490; 37224; 37228; 75710; 76937; 80048; 80053; 80202; 82040; 82947; 82962; 83036; 83605; 83735; 84100; 85025; 85651; 86140; 87040; 87070; 87081; 87205; 87324; 90471; 90715; 93922; 93925; 93970; 99156; 99157; C1725; G0378; J0295; J0696; J1644; J2250; J2720; J3010; J3370; J3480; P9047; Q0162; C1751; C1760; C1769; C1894; J1815; J2310; J7040; J7050

== ENCOUNTER → 2020-04-25 | Outpatient (CLI) | payer OTHER ==
[~2020-04-25] MED LIST changes: +ACID1GRA3 PO; +AMOX1TAB64 PO; +ASPI81TA45 PO; +ATOR20TA86 PO; +CHOL10003 PO; +CLOP75TA PO; +GLIP5TAB10 PO; +HYDR-1067 PO; +INSU100I11 SQ-INSULIN; +INSU100I13 SQ-INSULIN; +METF500T PO; +METF750T PO; +NYST1000 PO; +SITA100T PO
== END | disposition home or self-care (01) ==
LOC: WOUND 14:19
PROVIDERS: ATTEND Internal Medicine
DX: I70.248 Atherosclerosis of native arteries of left leg with ulceration of other part of lower leg (principal); L97.822 Non-pressure chronic ulcer of other part of left lower leg with fat layer exposed; I70.238 Atherosclerosis of native arteries of right leg with ulceration of other part of lower leg; L97.812 Non-pressure chronic ulcer of other part of right lower leg with fat layer exposed; I70.232 Atherosclerosis of native arteries of right leg with ulceration of calf; L97.212 Non-pressure chronic ulcer of right calf with fat layer exposed; I70.242 Atherosclerosis of native arteries of left leg with ulceration of calf; L97.222 Non-pressure chronic ulcer of left calf with fat layer exposed; I70.244 Atherosclerosis of native arteries of left leg with ulceration of heel and midfoot; E11.621 Type 2 diabetes mellitus with foot ulcer; L89.620 Pressure ulcer of left heel, unstageable; L97.421 Non-pressure chronic ulcer of left heel and midfoot limited to breakdown of skin; L03.116 Cellulitis of left lower limb; E11.51 Type 2 diabetes mellitus with diabetic peripheral angiopathy without gangrene; E11.41 Type 2 diabetes mellitus with diabetic mononeuropathy; E78.5 Hyperlipidemia, unspecified; G89.29 Other chronic pain; E44.0 Moderate protein-calorie malnutrition; F11.20 Opioid dependence, uncomplicated; Z68.30 Body mass index [BMI] 30.0-30.9, adult; Z90.49 Acquired absence of other specified parts of digestive tract; Z87.891 Personal history of nicotine dependence; Z98.62 Peripheral vascular angioplasty status; Z79.02 Long term (current) use of antithrombotics/antiplatelets; Z79.4 Long term (current) use of insulin; Z79.899 Other long term (current) drug therapy; Z96.641 Presence of right artificial hip joint
CPT/HCPCS: 97597; 97598; 99215

== ENCOUNTER → 2020-04-27 | Outpatient (CLI) | payer OTHER | END | disposition home or self-care (01) | LOC: WOUND 14:30 | PROVIDERS: ATTEND Internal Medicine | DX: I70.248 Atherosclerosis of native arteries of left leg with ulceration of other part of lower leg (principal); L97.822 Non-pressure chronic ulcer of other part of left lower leg with fat layer exposed; I70.238 Atherosclerosis of native arteries of right leg with ulceration of other part of lower leg; L97.812 Non-pressure chronic ulcer of other part of right lower leg with fat layer exposed; I70.242 Atherosclerosis of native arteries of left leg with ulceration of calf; L97.222 Non-pressure chronic ulcer of left calf with fat layer exposed; I70.232 Atherosclerosis of native arteries of right leg with ulceration of calf; L97.212 Non-pressure chronic ulcer of right calf with fat layer exposed; E11.621 Type 2 diabetes mellitus with foot ulcer; I70.244 Atherosclerosis of native arteries of left leg with ulceration of heel and midfoot; L89.620 Pressure ulcer of left heel, unstageable; L97.421 Non-pressure chronic ulcer of left heel and midfoot limited to breakdown of skin; L03.116 Cellulitis of left lower limb; E11.51 Type 2 diabetes mellitus with diabetic peripheral angiopathy without gangrene; E11.41 Type 2 diabetes mellitus with diabetic mononeuropathy; E78.5 Hyperlipidemia, unspecified; G89.29 Other chronic pain; E44.0 Moderate protein-calorie malnutrition; F11.20 Opioid dependence, uncomplicated; Z68.30 Body mass index [BMI] 30.0-30.9, adult; Z90.49 Acquired absence of other specified parts of digestive tract; Z87.891 Personal history of nicotine dependence; Z98.62 Peripheral vascular angioplasty status; Z79.02 Long term (current) use of antithrombotics/antiplatelets; Z79.4 Long term (current) use of insulin; Z79.899 Other long term (current) drug therapy; Z96.641 Presence of right artificial hip joint | CPT/HCPCS: 97606 ==

== ENCOUNTER 2020-04-29 14:00 | Outpatient (CLI) | payer OTHER | END 2020-04-29 23:59 | disposition home or self-care (01) | LOC: WOUND 14:00 | PROVIDERS: ATTEND Internal Medicine | DX: I70.248 Atherosclerosis of native arteries of left leg with ulceration of other part of lower leg (principal); L97.822 Non-pressure chronic ulcer of other part of left lower leg with fat layer exposed; I70.238 Atherosclerosis of native arteries of right leg with ulceration of other part of lower leg; L97.812 Non-pressure chronic ulcer of other part of right lower leg with fat layer exposed; I70.242 Atherosclerosis of native arteries of left leg with ulceration of calf; L97.222 Non-pressure chronic ulcer of left calf with fat layer exposed; I70.232 Atherosclerosis of native arteries of right leg with ulceration of calf; L97.212 Non-pressure chronic ulcer of right calf with fat layer exposed; E11.621 Type 2 diabetes mellitus with foot ulcer; I70.244 Atherosclerosis of native arteries of left leg with ulceration of heel and midfoot; L89.620 Pressure ulcer of left heel, unstageable; L97.421 Non-pressure chronic ulcer of left heel and midfoot limited to breakdown of skin; L03.116 Cellulitis of left lower limb; E11.51 Type 2 diabetes mellitus with diabetic peripheral angiopathy without gangrene; E11.41 Type 2 diabetes mellitus with diabetic mononeuropathy; E78.5 Hyperlipidemia, unspecified; G89.29 Other chronic pain; E44.0 Moderate protein-calorie malnutrition; F11.20 Opioid dependence, uncomplicated; Z68.30 Body mass index [BMI] 30.0-30.9, adult; Z90.49 Acquired absence of other specified parts of digestive tract; Z87.891 Personal history of nicotine dependence; Z98.62 Peripheral vascular angioplasty status; Z79.02 Long term (current) use of antithrombotics/antiplatelets; Z79.4 Long term (current) use of insulin; Z79.899 Other long term (current) drug therapy; Z96.641 Presence of right artificial hip joint | CPT/HCPCS: 97606 ==

== ENCOUNTER → 2020-05-04 | Outpatient (CLI) | payer OTHER | END | disposition home or self-care (01) | LOC: WOUND 10:22 | PROVIDERS: ATTEND Internal Medicine | DX: I70.248 Atherosclerosis of native arteries of left leg with ulceration of other part of lower leg (principal); L97.822 Non-pressure chronic ulcer of other part of left lower leg with fat layer exposed; I70.238 Atherosclerosis of native arteries of right leg with ulceration of other part of lower leg; L97.812 Non-pressure chronic ulcer of other part of right lower leg with fat layer exposed; I70.242 Atherosclerosis of native arteries of left leg with ulceration of calf; L97.222 Non-pressure chronic ulcer of left calf with fat layer exposed; I70.232 Atherosclerosis of native arteries of right leg with ulceration of calf; L97.212 Non-pressure chronic ulcer of right calf with fat layer exposed; E11.621 Type 2 diabetes mellitus with foot ulcer; I70.244 Atherosclerosis of native arteries of left leg with ulceration of heel and midfoot; L89.620 Pressure ulcer of left heel, unstageable; L97.421 Non-pressure chronic ulcer of left heel and midfoot limited to breakdown of skin; L03.116 Cellulitis of left lower limb; E11.51 Type 2 diabetes mellitus with diabetic peripheral angiopathy without gangrene; E11.41 Type 2 diabetes mellitus with diabetic mononeuropathy; E78.5 Hyperlipidemia, unspecified; G89.29 Other chronic pain; E44.0 Moderate protein-calorie malnutrition; F11.20 Opioid dependence, uncomplicated; Z68.30 Body mass index [BMI] 30.0-30.9, adult; Z90.49 Acquired absence of other specified parts of digestive tract; Z87.891 Personal history of nicotine dependence; Z98.62 Peripheral vascular angioplasty status; Z79.02 Long term (current) use of antithrombotics/antiplatelets; Z79.4 Long term (current) use of insulin; Z79.899 Other long term (current) drug therapy; Z96.641 Presence of right artificial hip joint | CPT/HCPCS: 97606 ==